=== PATIENT | female | born 1945 | race Caucasian/White ===

== ENCOUNTER → 2017-07-13 07:17 | Outpatient (CLI) | payer MEDICARE, OTHER, SELFPAY ==
[2017-07-13 13:27] LABS: Basophils # 0.2 K/mm3 (0-0.2); Basophils % 1.3 % (0.1-2.0); Eosinophils # 0.5 K/mm3 (0.0-0.4); Eosinophils % 3.2 % (0.1-12.0); Hematocrit 38.8 % (37.0-47.0); Hemoglobin 11.9 g/dL (12.2-16.2); Lymphocytes # 5.2 K/mm3 (0.7-4.5); Lymphocytes % 34.9 K/mm3 (10-50); Mean Corpuscular HGB Conc 30.6 g/dL (31.8-35.4); Mean Corpuscular Hemoglobin 25.8 pg (27.0-31.2); Mean Corpuscular Volume 84.2 fl (81-99); Mean Platelet Volume 9.8 fl (7.4-10.4); Monocytes # 0.6 K/mm3 (0.1-1.0); Neutrophils # 8.4 K/mm3 (1.8-7.8); Neutrophils % 56.5 % (37.0-80.0); Platelet Count 366 K/mm3 (142-424); Red Blood Count 4.61 M/mm3 (4.20-5.40); Red Cell Distribution Width 16.7 % (11.5-17.5); White Blood Count 14.8 K/mm3 (4.8-10.8)
[2017-07-13 13:55] LABS: Alanine Aminotransferase 23 U/L (12-78); Albumin Level 3.2 gm/dL (3.4-5.0); Anion Gap 15.2 mEq/L (5-15); Aspartate Amino Transferase 25 U/L (15-37); Bilirubin,Total 0.3 mg/dL (0.2-1.0); Blood Urea Nitrogen 11 mg/dL (7-18); Carbon Dioxide 26 mmol/L (21.0-32.0); Chloride 104 mmol/L (98-107); Creatinine,Serum 0.79 mg/dL (0.55-1.02); Estimated Glomerular Filt Rate 71 ml/min (>60); GFR (African American) 86 ML/MIN (>60); Glucose 170 mg/dL (74-106); Potassium 4.2 mmoL/L (3.5-5.1); Sodium 141 mmol/L (136-145); Total Protein,Serum 7.5 gm/dL (6.4-8.2)
[2017-07-13 13:56] LABS: Albumin/Globulin Ratio 0.7 (1.1-1.8); Alkaline Phosphatase 116 U/L (46-116); Chol/HDL Ratio 4.5 (1-3.5); Cholesterol 113 mg/dL (140-200); Globulin 4.3 gm/dl (1.3-3.2); HDL Cholesterol 25 mg/dL (29-89); LDL Cholesterol 37 mg/dL (0-130); Triglycerides 253 mg/dL (30-200); VLDL Cholesterol 51 mg/dL (0-40)
[2017-07-13 15:04] LABS: Hemoglobin A1C 7.1 % (0.0-7.0)
[2017-07-15 17:16] LABS: Vitamin B12 353 pg/mL (232-1245)
== END ==
PROVIDERS: PCP Internal Medicine Adolescent Medicine; Visit Provider Internal Medicine Adolescent Medicine
DX: E11.9 Type 2 diabetes mellitus without complications (principal); E78.5 Hyperlipidemia, unspecified; E53.8 Deficiency of other specified B group vitamins
CPT/HCPCS: 36415; 80053; 80061; 82607; 83036; 85025

== ENCOUNTER → 2017-10-06 09:24 | Outpatient (POV) | payer MEDICARE, SELFPAY | PROVIDERS: Visit Provider Dermatology | DX: Z00.00 Encounter for general adult medical examination without abnormal findings (principal) ==

== ENCOUNTER → 2017-11-03 09:36 | Outpatient (POV) | payer MEDICARE, SELFPAY | PROVIDERS: Visit Provider Dermatology | DX: Z00.00 Encounter for general adult medical examination without abnormal findings (principal) ==

== ENCOUNTER → 2017-11-21 11:17 | Outpatient (POV) | payer MEDICARE, OTHER, SELFPAY ==
[2017-11-21 11:31] VITALS: BP 162/60; PULSE 73; RESP 18; O2SAT 99; BMI 28.6
--- NOTE | 2017-11-21 11:45 | HMH.PAINSOAP ---
[facility] Pain Management SOAP Note Subjective:: It is an extremely pleasant 72-year-old white female who presents today for follow-up. Patient had a lumbar epidural steroid injection back in February. Patient had 90-100% relief until just recently. Patient is interested in repeating this injection. Patient's tried and failed physical therapy, medications, anti-inflammatories. Patient still is functional in trying to work. Patient states her pain is in her low back and radiating down into her left leg. ROS General: no recent weight change, no fever, no sleep disturbances Respiratory: no cough, no shortness of air, no recurring pulmonary infections Cardiovascular/Peripheral Vascular: No chest pain, No palpitations, no edema, no shortness of breath. Gastrointestinal: no incontinence, normal bowel movements reported Genitourinary: no incontinence Musculoskeletal: Back pain, left leg pain Psychiatric: normal mood/ affect Neurological: [denies weakness in extremities], [denies balance issues] Objective:: Physical Exam General: Alert and oriented x3, no acute distress, pleasant and cooperative, [on room air] Lungs: Resps E/U, Symmetrical chest expansion, Eyes: PERRL Musculoskeletal: Flexion and extension of lumbar spine somewhat guarded secondary to pain, deep tendon reflexes normal, strength in upper and lower extremities [5/5], slightly antalgic gait noted, positive straight leg raise test at 30? on the left side Neurological: speech clear, asset analyst equal, no gross sensory deficits Assessment:: Degenerative disc disease of lumbar spine with lumbar radiculopathy symptoms Plan:: We will schedule the patient for an L4-L5 lumbar epidural steroid injection. Patient's tried physical therapy, anti-inflammatories, medications. Patient has gotten 9800% relief for almost a year after her last injection. We will follow-up with this patient after her epidural steroid injection. This note was dictated using voice recognition software and may contain errors or omissions
--- NOTE | 2017-11-21 11:48 | P.CONS_ITS ---
[facility] Pain Management SOAP Note Subjective:: It is an extremely pleasant 72-year-old white female who presents today for follow-up. Patient had a lumbar epidural steroid injection back in February. Patient had 90-100% relief until just recently. Patient is interested in repeating this injection. Patient's tried and failed physical therapy, medications, anti-inflammatories. Patient still is functional in trying to work. Patient states her pain is in her low back and radiating down into her left leg. ROS General: no recent weight change, no fever, no sleep disturbances Respiratory: no cough, no shortness of air, no recurring pulmonary infections Cardiovascular/Peripheral Vascular: No chest pain, No palpitations, no edema, no shortness of breath. Gastrointestinal: no incontinence, normal bowel movements reported Genitourinary: no incontinence Musculoskeletal: Back pain, left leg pain Psychiatric: normal mood/ affect Neurological: [denies weakness in extremities], [denies balance issues] Objective:: Physical Exam General: Alert and oriented x3, no acute distress, pleasant and cooperative, [ on room air] Lungs: Resps E/U, Symmetrical chest expansion, Eyes: PERRL Musculoskeletal: Flexion and extension of lumbar spine somewhat guarded secondary to pain, deep tendon reflexes normal, strength in upper and lower extremities [5/5], slightly antalgic gait noted, positive straight leg raise test at 30? on the left side Neurological: speech clear, game advisor equal, no gross sensory deficits Assessment:: Degenerative disc disease of lumbar spine with lumbar radiculopathy symptoms Plan:: We will schedule the patient for an L4-L5 lumbar epidural steroid injection. Patient's tried physical therapy, anti-inflammatories, medications. Patient has gotten 9800% relief for almost a year after her last injection. We will follow-up with this patient after her epidural steroid injection. This note was dictated using voice recognition software and may contain errors or omissions
== END ==
PROVIDERS: Visit Provider Clinical Nurse Specialist Family Health
DX: M54.16 Radiculopathy, lumbar region (principal)
CPT/HCPCS: 99212

== ENCOUNTER → 2018-02-27 14:53 | Outpatient (POV) | payer MEDICARE, OTHER, SELFPAY ==
[2018-02-27 15:11] VITALS: BP 172/67; PULSE 72; RESP 18; O2SAT 96; BMI 27.8
--- NOTE | 2018-02-27 15:30 | P.CONS_ITS ---
[facility] Pain Management SOAP Note Subjective:: Patient is a pleasant 73-year-old white female who presents today for follow-up. Patient has done well with her lumbar epidural steroid injections and getting 90-100% relief for several months. Patient states her pain has begun to return. Patient is working longer hours. Patient's tried and failed physical therapy, anti-inflammatories, medications. Patient is still doing a home exercise routine. Patient is not on any anticoagulation therapy. ROS General: no recent weight change, no fever, no sleep disturbances Respiratory: no cough, no shortness of air, no recurring pulmonary infections Cardiovascular/Peripheral Vascular: No chest pain, No palpitations, no edema, no shortness of breath. Gastrointestinal: no incontinence, normal bowel movements reported Genitourinary: no incontinence Musculoskeletal: Back pain, leg pain Psychiatric: normal mood/ affect, Neurological: [denies weakness in extremities], [denies balance issues] Objective:: Physical Exam General: Alert and oriented x3, no acute distress, pleasant and cooperative, [on room air] Lungs: Resps E/U, Symmetrical chest expansion, Eyes: PERRL Musculoskeletal: Flexion and extension of lumbar spine somewhat guarded secondary to pain, deep tendon reflexes normal, strength in upper and lower extremities [5/5], slightly antalgic gait noted, positive straight leg raise test bilaterally at 30? Neurological: speech clear, filter press tender equal, no gross sensory deficits Assessment:: Degenerative disc disease along the lumbar spine with lumbar radiculopathy symptoms Plan:: We will schedule an L4-L5 lumbar epidural steroid injection for the patient. I will the patient 2 weeks after her injection and reassess her symptoms at that time. Patient has had good relief with these in the past. This note was dictated using voice recognition software and may contain errors or omissions
== END ==
PROVIDERS: PCP Internal Medicine Adolescent Medicine; Visit Provider Clinical Nurse Specialist Family Health
DX: M51.16 Intervertebral disc disorders with radiculopathy, lumbar region (principal)
CPT/HCPCS: 99213

== ENCOUNTER → 2018-10-02 15:24 | Outpatient (CLI) | payer MEDICARE, OTHER, SELFPAY ==
--- NOTE | 2018-10-02 15:30 | CT_ITS ---
CT mastoid W/O INDICATION: Suspect right-sided mastoiditis ITS.REASON: CELLULITIS OF RT. EXTERNAL EAR ORDERING PHYSICIAN: Shree Gallagher MD PATIENT AGE: 73 years COMPARISON: None TECHNIQUE: Axial images obtained with sagittal and coronal reformats. All CT scans at the facility use one or more dose reduction, viz: automated exposure control, ma/kV adjustment per patient size (including targeted exams where dose is matched to indication, i.e. head), or iterative reconstruction technique. FINDINGS: There is focal mucoperiosteal thickening of the posterior superior wall of the right maxillary sinus. The mastoids are clear bilaterally. Both internal auditory canals appear normal. There is very subtle and questionable increased attenuation of the soft tissues of the right ear when compared to the left possibly due to cellulitis. The ethmoid sinuses are clear, the frontal sinuses are hypoplastic but clear and sphenoid sinuses clear. The nasal septum is in the midline. There are mild arthritic changes of the temporomandibular joints bilaterally right worse than left. IMPRESSION: Normal mastoids bilaterally, mild chronic inflammatory change of the right maxillary sinus and mild arthritic changes of the temporomandibular joints.
== END ==
PROVIDERS: PCP Internal Medicine Adolescent Medicine; Visit Provider Internal Medicine Adolescent Medicine
DX: H60.11 Cellulitis of right external ear (principal)
CPT/HCPCS: 70486

== ENCOUNTER → 2018-10-03 10:35 | Outpatient (CLI) | payer MEDICARE, OTHER, SELFPAY ==
[2018-10-03 13:34] LABS: Basophils # 0.2 K/mm3 (0-0.2); Basophils % 0.8 % (0.1-2.0); Eosinophils # 0.3 K/mm3 (0.0-0.4); Eosinophils % 1.8 % (0.1-12.0); Hematocrit 37.4 % (37.0-47.0); Hemoglobin 11.2 g/dL (12.2-16.2); Lymphocytes # 4.7 K/mm3 (0.7-4.5); Lymphocytes % 27.1 % (10-50); Mean Corpuscular HGB Conc 29.9 g/dL (31.8-35.4); Mean Corpuscular Hemoglobin 24.6 pg (27.0-31.2); Mean Corpuscular Volume 82.3 fl (81-99); Mean Platelet Volume 9.9 fl (7.4-10.4); Monocytes # 0.5 K/mm3 (0.1-1.0); Monocytes % 3.1 % (1.7-9.3); Neutrophils # 11.7 K/mm3 (1.8-7.8); Neutrophils % 67.2 % (37.0-80.0); Red Blood Count 4.54 M/mm3 (4.20-5.40); Red Cell Distribution Width 17.2 % (11.5-17.5); White Blood Count 17.4 K/mm3 (4.8-10.8)
[2018-10-03 13:44] LABS: Alanine Aminotransferase 28 U/L (12-78); Albumin Level 3.3 gm/dL (3.4-5.0); Albumin/Globulin Ratio 0.7 (1.1-1.8); Alkaline Phosphatase 108 U/L (46-116); Anion Gap 17.2 mEq/L (5-15); Aspartate Amino Transferase 33 U/L (15-37); Bilirubin,Total 0.3 mg/dL (0.2-1.0); Blood Urea Nitrogen 11 mg/dL (7-18); Calcium 9.5 mg/dL (8.5-10.1); Carbon Dioxide 26 mmol/L (21.0-32.0); Chloride 103 mmol/L (98-107); Creatinine,Serum 0.99 mg/dL (0.55-1.02); Estimated Glomerular Filt Rate 55 ml/min (>60); GFR (African American) 66 ML/MIN (>60); Globulin 4.8 gm/dl (1.3-3.2); Glucose 148 mg/dL (74-106); Potassium 4.2 mmoL/L (3.5-5.1); Sodium 142 mmol/L (136-145); Total Protein,Serum 8.1 gm/dL (6.4-8.2)
[2018-10-03 14:15] LABS: Platelet Count 468 K/mm3 (142-424)
[2018-10-03 14:16] LABS: MANUAL DIFFERENTIAL MANUAL DIFFERENTIAL (MANUAL DIFF)
[2018-10-03 15:45] LABS: Eosinophils % 2 % (0-3); Hypochromasia 1+; Lymphocytes % 27 % (10-50); Monocytes % 3 % (2-9); Neutrophils % 65 % (42-76); Platelet Estimate Normal; Total Cells Counted 100
[2018-10-05 10:38] LABS: Peripheral Smear Review Scanned Result
== END ==
PROVIDERS: PCP Internal Medicine Adolescent Medicine; Visit Provider Internal Medicine Adolescent Medicine
DX: R04.2 Hemoptysis (principal); D72.829 Elevated white blood cell count, unspecified
CPT/HCPCS: 36415; 80053; 85007; 85025; 85060

== ENCOUNTER → 2018-10-06 09:58 | Outpatient (CLI) | payer MEDICARE, OTHER, SELFPAY ==
--- NOTE | 2018-10-06 10:19 | CT_ITS ---
CT chest w con HISTORY: ITS.REASON: HEMOPTYSIS hemoptysis. ORDERING PHYSICIAN: Shree Gallagher MD PATIENT AGE: 73 years COMPARISON: 2 view chest 09/18/[address] studies chest Technique: Axial images obtained. Sagittal and coronal reformatted images are also generated and reviewed. All CT scans at the facility use one or more dose reduction, viz: automated exposure control, ma/kV adjustment per patient size (including targeted exams where dose is matched to indication, i.e. head), or iterative reconstruction technique. FINDINGS: MEDIASTINAL AND HILAR STRUCTURES: No mediastinal adenopathy. Only small moderate nodes. Largest measuring 14 x 10 mm at the superior precarinal region. Axial slice 28. Only a few tiny nodes at the AP window. RIGHT GUERRERO Minimal Additional soft tissue density right guerrero suggesting a 14 mm node here, mid right guerrero] point between the pulmonary arteries. Upper normal soft tissue density at the right guerrero inferiorly also noted. This will require follow-up. Suggest a follow-up CT chest in 3 months with contrast with given history. Bronchoscopy might be considered... I see no endobronchial lesion associated with airways on these images. Central Appear smooth. Upper normal airway thickness. Left Guerrero. Upper normal interstitial density at left guerrero. No adenopathy. HEART: . Heart upper normal in size Coronary artery calcifications are fairly extensive mainly involving the LAD, circumflex also at the left main and right coronary artery. Previous median sternotomy and CABG. No pericardial effusion. The aorta and pulmonary arteries are unremarkable. Moderate enhancement of pulmonary arteries with no pulmonary emboli evident LUNG HANKINS. Fairly pronounced chronic changes bilaterally Emphysematous changes, with interstitial fibrotic changes as well as scattered patchy areas of fibrotic changes at the periphery the lung hankins. Some with associated small cyst/ bleb formation Scattered small blebs at the periphery of the left upper lung most notable. There is some fibrosis and and processing tiny blebs seen at several areas at the right posterior sulcus. Some of the these fibrotic features & changes at the medial right chest associated with marginal osteophytes indenting the lung. Very subtle groundglass opacity towards ligula reflecting chronic lung changes as well. I see no suspicious lung masses or significant suspicious nodules. Small focal density at the medial aspect of the right posterior sulcus on on axial slice 63 measures up to 14 mm but appears be related to scarring.. Similar focal area of density which favor is due to scarring at the left CP angle/lung base just above the diaphragm. Otherwise at left lower lobe there is a calcified granuloma, left lung base 6 mm size (axial 53) some minimal scarring about this area. . Small flat area of density posterior RLL axial slice 45 is merely due to scarring . Upper Abdomen. Unremarkable. Bone:. T-spine vertebral bodies intact marginal osteophytes. Sternotomy. No rib lesions.: IMPRESSION: 1. Mild prominence right guerrero noted- suggest 14 mm node at Central right guerrero with upper normal interstitial density inferior to this.. Airway appears smooth in this region with no endobronchial lesion evident. Upper normal wall thickness airways centrally 2.. Moderately pronounced Chronic lung changes bilaterally,. Emphysematous changes. Numerous performed Patchy areas of fibrotic of change and minor bleb formation . Interstitial coarsening with also Slight groundglass opacity lingula.-Reflecting chronic features No focal parenchymal lung nodule or mass of significant concern. Scattered benign-appearing densities most likely due to scarring 3. Recommend bilateral f
--- NOTE | 2018-10-06 12:46 | HMH.ITSHM ---
Current Home Medications as stated by this patient Judie Pisano or labor representative. []VIT D,NIACAIN,ALPRAZOLAM,ASPIRIN,VITR C CARVEDILOLMESCITALOPRAM,INVOKANA LEVOTHRYROXINE,OMEPRAZOLE,RANITIDINE FUROSEMIED ATORVASTATIN CRISTIANOUMET
== END ==
PROVIDERS: PCP Internal Medicine Adolescent Medicine; Visit Provider Internal Medicine Adolescent Medicine
DX: R04.2 Hemoptysis (principal)
CPT/HCPCS: 71260; Q9967

== ENCOUNTER → 2018-10-16 10:59 | Outpatient (CLI) | payer MEDICARE, OTHER, SELFPAY ==
[2018-10-16 12:50] VITALS: PULSE 77; PULSE 78
== END ==
PROVIDERS: PCP Internal Medicine Adolescent Medicine; Visit Provider Internal Medicine Adolescent Medicine
DX: R05 Cough (principal)
CPT/HCPCS: 94060; 94640; 94726; 94729

== ENCOUNTER → 2018-12-25 09:44 | Outpatient (CLI) | payer MEDICARE, OTHER, SELFPAY ==
--- NOTE | 2018-12-25 09:51 | XR_ITS ---
XR foot wt bearing LT 3V HISTORY: ITS.REASON: pain ORDERING PHYSICIAN: Manjula Cardona DPM PATIENT AGE: 73 years COMPARISON: None FINDINGS: No fracture or dislocation. No lytic or blastic change. There is normal mineralization.. The joint spaces are well-preserved. No significant degenerative/arthritic changes. No erosive changes evident. There are small ossification posterior to the calcaneus likely related to the Achilles tendon. IMPRESSION: No acute process. Achilles tendon ossification likely from chronic tendinosis.
--- NOTE | 2018-12-25 09:51 | XR_ITS ---
XR foot wt bearing RT 3V HISTORY: ITS.REASON: pain ORDERING PHYSICIAN: Manjula Cardona DPM PATIENT AGE: 73 years COMPARISON: None FINDINGS: No fracture or dislocation. No lytic or blastic change. There is normal mineralization.. The joint spaces are well-preserved. No significant degenerative/arthritic changes. No erosive changes evident. There is small spur posterior calcaneus at the Achilles tendon attachment. IMPRESSION: No acute process. Degenerative calcaneal change.
== END ==
PROVIDERS: PCP Internal Medicine Adolescent Medicine; Visit Provider Podiatrist
DX: M79.672 Pain in left foot (principal); M79.671 Pain in right foot
CPT/HCPCS: 73630

== ENCOUNTER → 2019-01-02 07:23 | Outpatient (CLI) | payer MEDICARE, OTHER, SELFPAY ==
[2019-01-02 14:39] LABS: Basophils # 0.1 K/mm3 (0-0.2); Basophils % 0.8 % (0.1-2.0); Eosinophils % 5.3 % (0.1-12.0); Hematocrit 34.1 % (37.0-47.0); Hemoglobin 9.7 g/dL (12.2-16.2); Lymphocytes # 4.4 K/mm3 (0.7-4.5); Lymphocytes % 23.9 % (10-50); Mean Corpuscular HGB Conc 28.5 g/dL (31.8-35.4); Mean Corpuscular Hemoglobin 22.7 pg (27.0-31.2); Mean Corpuscular Volume 79.7 fl (81-99); Mean Platelet Volume 9.9 fl (7.4-10.4); Monocytes # 0.8 K/mm3 (0.1-1.0); Monocytes % 4.3 % (1.7-9.3); Neutrophils # 12.2 K/mm3 (1.8-7.8); Neutrophils % 65.8 % (37.0-80.0); Red Blood Count 4.28 M/mm3 (4.20-5.40); Red Cell Distribution Width 18.2 % (11.5-17.5); White Blood Count 18.5 K/mm3 (4.8-10.8)
[2019-01-02 15:37] LABS: MANUAL DIFFERENTIAL MANUAL DIFFERENTIAL (MANUAL DIFF); Platelet Count 598 K/mm3 (142-424)
[2019-01-02 15:40] LABS: Alanine Aminotransferase 35 U/L (12-78); Albumin Level 2.8 gm/dL (3.4-5.0); Albumin/Globulin Ratio 0.6 (1.1-1.8); Alkaline Phosphatase 103 U/L (46-116); Anion Gap 14.9 mEq/L (5-15); Aspartate Amino Transferase 42 U/L (15-37); Bilirubin,Total 0.3 mg/dL (0.2-1.0); Blood Urea Nitrogen 13 mg/dL (7-18); Calcium 8.9 mg/dL (8.5-10.1); Carbon Dioxide 25 mmol/L (21.0-32.0); Chloride 104 mmol/L (98-107); Creatinine,Serum 0.74 mg/dL (0.55-1.02); Estimated Glomerular Filt Rate 77 ml/min (>60); Ferritin 80 ng/mL (8-388); GFR (African American) 93 ML/MIN (>60); Globulin 4.7 gm/dl (1.3-3.2); Glucose 194 mg/dL (74-106); Potassium 4.9 mmoL/L (3.5-5.1); Sodium 139 mmol/L (136-145); Total Protein,Serum 7.5 gm/dL (6.4-8.2)
[2019-01-02 16:28] LABS: Anisocytosis 2+; Eosinophils % 3 % (0-3); Hypochromasia 3+; Lymphocytes % 29 % (10-50); Microcytosis 2+; Monocytes % 4 % (2-9); Neutrophils % 64 % (42-76); Platelet Estimate Clumped; Total Cells Counted 100
[2019-01-04 06:17] LABS: Iron 22 ug/dL (27-139); UIBC 379 ug/dL (118-369)
[2019-01-04 06:24] LABS: Iron Saturation 5 % (15-55)
[2019-01-04 15:07] LABS: Free Kappa Lt Chains 56.7 mg/L (3.3-19.4); Free Lambda Lt Chains 41.9 mg/L (5.7-26.3)
[2019-01-05 07:11] LABS: Vitamin B12 509 pg/mL (232-1245)
[2019-01-05 14:08] LABS: Immunoglobulin A, Qn 340 mg/dL (64-422); Immunoglobulin G, Qn 1676 mg/dL (700-1600)
[2019-01-05 15:08] LABS: Albumin 3.1 g/dL (2.9-4.4); Alpha-1-Globulin 0.2 g/dL (0.0-0.4); Alpha-2-Globulin 1.3 g/dL (0.4-1.0); Gamma Globulin 1.8 g/dL (0.4-1.8); Protein, Total 7.6 g/dL (6.0-8.5)
[2019-01-05 17:16] LABS: Immunoglobulin M, Qn 65 mg/dL (26-217)
== END ==
PROVIDERS: PCP Internal Medicine Adolescent Medicine; Visit Provider Internal Medicine Medical Oncology
DX: D72.829 Elevated white blood cell count, unspecified (principal); D50.9 Iron deficiency anemia, unspecified; J18.9 Pneumonia, unspecified organism
CPT/HCPCS: 36415; 80053; 81206; 82607; 82728; 82784; 83540; 83550; 83883; 84155; 84165; 85007; 85025; 86334

== ENCOUNTER → 2019-01-11 08:48 | Outpatient (CLI) | payer MEDICARE, OTHER, SELFPAY ==
--- NOTE | 2019-01-11 08:59 | CT_ITS ---
CT chest w con HISTORY: ITS.REASON: PNEUMONIA,IRON DEF,ANEMIA,LEUKOCYTOSIS ORDERING PHYSICIAN: Jeannine Young MD PATIENT AGE: 73 years COMPARISON: 10/06/2018 Technique: Contrast Used:75ml Optiray 350 Axial images were obtained. Sagittal, and coronal reformatted images are also generated and reviewed. All CT scans at the facility use one or more dose reduction, viz: automated exposure control, ma/kV adjustment per patient size (including targeted exams where dose is matched to indication, i.e. head), or iterative reconstruction technique. FINDINGS: There is mild mediastinal adenopathy once again noted which does not appear significantly changed. Small nodes are also present in the willem which are unchanged. Coronary artery calcifications are present. There is normal heart size. No evidence of aortic aneurysm or dissection. There are scattered pulmonary fibrotic changes with interstitial lung disease noted along with centrilobular emphysema. These findings are not significantly changed. No lobar consolidation or collapse. Scattered areas of groundglass density are noted as before in keeping with interstitial pneumonitis. There is a calcified granuloma in the left lower lobe. No central obstructing lesions. Upper abdominal images show prior splenectomy. There is high-grade stenosis involving the ostium of the celiac artery of at least 90% and moderate to high-grade stenosis of the ostium of the superior mesenteric artery of 60%. IMPRESSION: 1. Overall no significant change in the mild mediastinal and hilar adenopathy with diffuse interstitial pneumonitis/chronic interstitial lung disease with scattered areas of pulmonary fibrosis. 2. 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 CT angiography of the mesenteric vessels may be of further value if clinically desired 3. Coronary artery calcification
== END ==
PROVIDERS: PCP Internal Medicine Adolescent Medicine; Visit Provider Internal Medicine Medical Oncology
DX: J18.9 Pneumonia, unspecified organism (principal); D50.9 Iron deficiency anemia, unspecified; D72.829 Elevated white blood cell count, unspecified
CPT/HCPCS: 71260; Q9967

== ENCOUNTER → 2019-01-15 13:33 | Outpatient (CLI) | payer MEDICARE, OTHER, SELFPAY ==
[2019-01-15 13:59] LABS: Blood Urea Nitrogen 13 mg/dL (7-18); Estimated Glomerular Filt Rate 70 ml/min (>60); GFR (African American) 85 ML/MIN (>60)
--- NOTE | 2019-01-15 14:20 | CT_ITS ---
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 All CT scans at the facility use one or more dose reduction, viz: automated exposure control, ma/kV adjustment per patient size (including targeted exams where dose is matched to indication, i.e. head), or iterative reconstruction technique. FINDINGS: There is 75 % short segment stenosis involving the ostium of the celiac artery. There is poststenotic dilatation. There is 70 % smooth stenosis involving the proximal aspect of the superior mesenteric artery. This stenosis is approximately 10 mm in length. There is poststenotic dilatation of the superior mesenteric artery distal to this stenosis. There is mild amount of plaque at the ostium of the renal arteries but no significant renal artery stenosis identified. There are 2 right renal arteries. No aortic aneurysm or dissection. Nonage in graphic findings: Prior splenectomy 2 cm right renal cyst Degenerative changes of the spine. IMPRESSION: 1. 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 There is 75% stenosis of the ostium of the celiac and 70% long smooth segment stenosis of the ostium of the SMA.
== END ==
PROVIDERS: Visit Provider Internal Medicine Adolescent Medicine
DX: I77.4 Celiac artery compression syndrome (principal)
CPT/HCPCS: 36415; 74175; 82565; 84520; Q9967

== ENCOUNTER → 2019-02-01 10:17 | Outpatient (CLI) | payer MEDICARE, OTHER, SELFPAY ==
--- NOTE | 2019-02-01 10:23 | MM_ITS ---
MM Dig screening mamm BI w/CAD CAD Screening COMPARISON: Digital mammograms with CAD 08/25/2011 and 11/13/2015 INDICATION: There is no personal or family history of breast cancer TECHNIQUE: Standard CC and MLO images were obtained. R2 CAD reviewed. FINDINGS: Scattered fibroglandular densities are seen in both breast. There is a new asymmetric density with somewhat suspicious irregular borders upper outer quadrant right breast near the axillary tail. Recommend the patient return for spot compression views of this lesion and ultrasound as well. There are few benign-appearing calcifications in each breast. There are no suspicious microcalcifications. IMPRESSION: Fibrofatty parenchyma with somewhat suspicious asymmetric density right breast BI-RADS Category: 0 Need Additional Imaging Evaluation RECOMMENDED FOLLOW-UP: IMM - IMMEDIATE FOLLOW-UP RECOMMENDED (A letter has been sent to the patient regarding results of the study.)
== END ==
PROVIDERS: PCP Internal Medicine Adolescent Medicine; Visit Provider Internal Medicine Medical Oncology
DX: Z12.31 Encounter for screening mammogram for malignant neoplasm of breast (principal)
CPT/HCPCS: 77067

== ENCOUNTER → 2019-02-06 06:56 | Outpatient (CLI) | payer MEDICARE, OTHER, SELFPAY ==
--- NOTE | 2019-02-06 06:57 | CI_ITS ---
Cerebrovascular Exam Indications: 780.4 Dizziness and giddiness. IMPRESSIONS 1. The bilateral vertebral arteries are patent with normal antegrade flow. 2. Study suggests 20-49% stenosis involving the right internal carotid artery. 3. Study suggests 50-69%(Lower end of scale)stenosis involving the left internal carotid artery. History: Risk factors: Hypertension. Diabetes mellitus. Hyperlipidemia. Carotid duplex study. Complete study and Doppler flow study including spectral analysis, color and sparrow scale imaging. Height: Height: 165.1cm. Height: 65in. Weight: Weight: 76.7kg. Weight: 168.6lb. Body mass index: BMI: 28.1kg/m^2. Body surface area: BSA: 1.9m^2. Location: Vascular laboratory. Patient status: Outpatient. Tables: Arterial flow: + +--------+--------+ Location V sys V ed + +--------+--------+ Right CCA - proximal 95cm/s 17.5cm/s + +--------+--------+ Right CCA - distal 75.4cm/s 14cm/s + +--------+--------+ Right ECA 88.6cm/s -------- + +--------+--------+ Right ICA - proximal 101cm/s 26.5cm/s + +--------+--------+ Right ICA - mid 124cm/s 31.4cm/s + +--------+--------+ Right ICA - distal 96.8cm/s 24.5cm/s + +--------+--------+ Right vertebral 47.8cm/s -------- + +--------+--------+ Left CCA - proximal 91.1cm/s 17.6cm/s + +--------+--------+ Left CCA - distal 75.5cm/s 15.4cm/s + +--------+--------+ Left ECA 101cm/s -------- + +--------+--------+ Left ICA - proximal 141cm/s 32.3cm/s + +--------+--------+ Left ICA - mid 124cm/s 36.7cm/s + +--------+--------+ Left ICA - distal 84.5cm/s 23cm/s + +--------+--------+ Left vertebral 72.6cm/s -------- + +--------+--------+ Velocity ratios: + + + + + + Right, V sys Right, V ed Left, V sys Left, V ed + + + + + + Max ICA/dist CCA 1.64 2.24 1.87 2.38 + + + + + + (Report amended ) Electronically signed by: Nirmal Guerrero [id number]
--- NOTE | 2019-02-06 06:57 | CA_ITS ---
PROCEDURE: 2-D M-mode and color Doppler study INDICATIONS FOR THE TEST: Chest pain COPD Heart Murmur Tobacco Smoking Palpitations+ Fatigue+ Syncope Edema+ Hypertension+Diabetes Mellitus+ Rheumatic Fever SOB POLANCO Obesity Hyperlipidemia+ Family History HD+ Additional History CABG PATIENT INFORMATION HEIGHT: 65 WEIGHT: 174 GENDER: Female B/P: 140/60 2-D/M-MODE INTERPRETATION: 2-D MEASUREMENTS OBSERVED VALUES IN CMS Right Ventricular Dimension (RVDd) 2.4 Interventricular Septum (Thickness)(IVsd) 0.8 Left Ventricular Internal Dimensions(LVIDd) 5.6 Left Ventricular Posterior Wall (Thickness)(LVPWd) 0.9 Aortic Root 2.7 Aortic Cusp Separation 2.0 Left Atrial Dimensions (LAD) 4.2 2D 1. Left atrium is mildly enlarged, left ventricle is normal size, there is mild concentric left ventricular hypertrophy, visually estimated ejection fraction 50% with no obvious regional wall motion abnormality, endocardial surfaces are poorly visualized. 2. The right atrium and right ventricle are mildly enlarged with normal contractility. 3. The aortic valve is thickened and calcified difficult to display mobility. 4. The mitral and tricuspid valve leaflets are minimally thickened. 5. The pulmonic valve is poorly visualized. 6. No significant pericardial effusion noted. DOPPLER INTERROGATION: Doppler interrogation of the aortic, mitral and tricuspid valvular presence of mild mitral, moderate aortic and tricuspid regurgitation, calculated right ventricular systolic pressure is 43 mmHg consistent with moderate pulmonary hypertension, grade 1 diastolic dysfunction seen with Doppler evidence of raised left atrial pressure. Inferior vena cava is not well visualized. CONCLUSION: 1. Mildly enlarged left atrium, normal left ventricular size, mild concentric left ventricular hypertrophy, visually estimated ejection fraction 50% with no obvious regional wall motion abnormality, grade 1 diastolic dysfunction seen with tissue Doppler evidence of raised left atrial pressure. 2. Mild mitral, moderate aortic and moderate tricuspid regurgitation, calculated right ventricular systolic pressure is 43 mmHg, consistent with moderate pulmonary hypertension. Inferior vena cava is not well visualized. 3. No significant pericardial effusion noted.
--- NOTE | 2019-02-06 06:57 | NM_ITS ---
SPECT MYOCARDIAL PERFUSION SCAN, REST AND STRESS: EXERCISE STRESS: [facility] REVIEW QGS EF AND WALL MOTION EVALUATION: QPS - PERFUSION EVALUATION: HISTORY: CAD, Hx of AK, CABG, HTN, DM, Family history PROCEDURE: Rest imaging performed after administration of10.41 millicuries Tc MIBI. Dose administered at7:10 a.m., with imaging thereafter. Stress imaging was then performed following6 minutes 30 seconds of exercise stress. The patient achieved a heart [id number] with projected heart rate of123 . Resting BP171/74 with stress 160/70. At maximum exercise stress,29.9 millicuries Tc MIBI administered at8:55 a.m. with [id number] minutes thereafter. FINDINGS: Perfusion Evaluation: The single slice spect images as well as the [facility] bull's-eye data summary were reviewed. Wall Motion and Ejection Fraction Evaluation: Gated SPECT review and analysis used to evaluate these features. There is a 58 % left ventricular ejection fraction. There seems to be good wall motion Stress images reveal large defect in the anterior and lateral wall which normalizes with rest IMPRESSION: High risk abnormal stress test with large degree of anterior lateral ischemia accompanied by normal ejection fraction with mild hypokinesis of the anterior apex.
--- NOTE | 2019-02-06 07:16 | HMH.ITSHM ---
Current Home Medications as stated by this patient Judie Pisano or field representative/health education. []SITAGLIPTIN RANITIDINE NIACIN LEVOTHYROXINE FUROSEMIDE FLUTICASONE ESCITALOPRAM DICLOFENAC VIT D3 CARVEDILOL BUDESONIDE ATORVASTATIN ASA VITAMIN C ALPRAZOLAM
== END ==
PROVIDERS: PCP Internal Medicine Adolescent Medicine; Visit Provider Internal Medicine
DX: I25.2 Old myocardial infarction (principal); I65.29 Occlusion and stenosis of unspecified carotid artery; R42 Dizziness and giddiness
CPT/HCPCS: 78452; 93017; 93306; 93880; A9502

== ENCOUNTER → 2019-02-26 08:34 | Outpatient (CLI) | payer MEDICARE, OTHER, SELFPAY ==
[2019-02-26 08:58] LABS: Basophils # 0.1 K/mm3 (0-0.2); Basophils % 0.7 % (0.1-2.0); Eosinophils # 0.4 K/mm3 (0.0-0.4); Eosinophils % 2.3 % (0.1-12.0); Hematocrit 37.8 % (37.0-47.0); Hemoglobin 11.3 g/dL (12.2-16.2); Lymphocytes # 3.9 K/mm3 (0.7-4.5); Lymphocytes % 21.3 % (10-50); Mean Corpuscular Hemoglobin 24.8 pg (27.0-31.2); Mean Corpuscular Volume 82.7 fl (81-99); Mean Platelet Volume 9.4 fl (7.4-10.4); Monocytes # 0.9 K/mm3 (0.1-1.0); Monocytes % 5.1 % (1.7-9.3); Neutrophils # 12.9 K/mm3 (1.8-7.8); Neutrophils % 70.5 % (37.0-80.0); Platelet Count 365 K/mm3 (142-424); Red Blood Count 4.57 M/mm3 (4.20-5.40); Red Cell Distribution Width 20.3 % (11.5-17.5); White Blood Count 18.3 K/mm3 (4.8-10.8)
[2019-02-26 09:04] LABS: MANUAL DIFFERENTIAL MANUAL DIFFERENTIAL (MANUAL DIFF)
[2019-02-26 09:14] LABS: Anion Gap 15.4 mEq/L (5-15); Blood Urea Nitrogen 25 mg/dL (7-18); Calcium 9.6 mg/dL (8.5-10.1); Carbon Dioxide 25 mmol/L (21.0-32.0); Chloride 103 mmol/L (98-107); Creatinine,Serum 1.12 mg/dL (0.55-1.02); Estimated Glomerular Filt Rate 47 ml/min (>60); GFR (African American) 57 ML/MIN (>60); Glucose 219 mg/dL (74-106); Potassium 4.4 mmoL/L (3.5-5.1); Sodium 139 mmol/L (136-145)
[2019-02-26 09:24] LABS: Acanthocytes 1+; Eosinophils % 2 % (0-3); Lymphocytes % 14 % (10-50); Monocytes % 7 % (2-9); Neutrophils % 73 % (42-76); Platelet Estimate Normal; Schistocytes 1+; Total Cells Counted 100
[2019-02-26 09:25] LABS: Hypochromasia 2+; Macrocytosis 1+; Microcytosis 1+
== END ==
PROVIDERS: Visit Provider Internal Medicine
DX: Z95.5 Presence of coronary angioplasty implant and graft (principal); I25.10 Atherosclerotic heart disease of native coronary artery without angina pectoris
CPT/HCPCS: 36415; 80048; 85007; 85025

== ENCOUNTER → 2019-02-27 13:16 | Outpatient (CLI) | payer MEDICARE, OTHER, SELFPAY ==
--- NOTE | 2019-02-27 13:26 | MM_ITS ---
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 This partially compresses out and is similar density to the other areas of surrounding breast tissue. This may only be related to asymmetric fibroglandular tissue the. Right breast ultrasound: There is a 5 mm cyst at 5 o'clock. At 8 o'clock there is a 6 mm cyst. At 10 o'clock there is a 3 mm cyst. No suspicious lesions are evident. IMPRESSION: Persistent small area of asymmetric density in the upper outer right breast without definite sonographic correlate may be related to fibroglandular tissue. This is only well seen on the MLO view. Probably benign. Recommend six-month follow-up BI-RAD Category: 3 Probably Benign Finding Short Term Follow-up FOLLOW-UP: 6M 6Month Follow-up (A letter has been sent to the patient regarding results of the study.) Dictated by: Nirmal Guerrero MD 03/02/2019 11:24 Signed by: <Electronically signed by Nirmal Guerrero MD in [place]> 03/02/2019 11:24
== END ==
PROVIDERS: PCP Internal Medicine Adolescent Medicine; Visit Provider Internal Medicine Adolescent Medicine
DX: R92.8 Other abnormal and inconclusive findings on diagnostic imaging of breast (principal)
CPT/HCPCS: 76641; 77065

== ENCOUNTER → 2019-06-17 14:10 | Outpatient (CLI) | payer MEDICARE, OTHER, SELFPAY ==
--- NOTE | 2019-06-17 | XR_ITS ---
PROCEDURE: XR SHOULDER RT MIN 2V Patient Age:74Y CLINICAL INDICATION: RIGHT ANTERIOR SHOULDER PAIN The the COMPARISON: CXR CHEST(2 VIEWS-NOT PORTABLE) from 09/18/2015 SHOU3L [id number] VIEWS from 06/06/[address] chest w con from 01/11/2019 FINDINGS: Right humeral head and neck intact. No fracture. No acute finding. Glenoid intact. Glenohumeral joint intact and unremarkable. AC joint normal width. Minimal hazy dystrophic calcification at the superior margin AC joint-may reflect some vague degenerative type calcification, or less likely chondrocalcinosis. I believe a similar appearance was seen on previous January 2019 CT chest. However if there is pain here than this may benefit from follow-up with there is a very subtle linear density among this hazy density noted today but doubt acute finding or fracture. Nonetheless if pain in persist here follow-up suggested. There is no separation or dislocation at AC joint. The upper right ribs are intact. The scapula is intact. The glenohumeral joint intact. Humeral head and neck appears satisfactory with some insertional irregularities at the greater tuberosity.. A slight narrowing at the subacromial lesion reflect rotator cuff demise IMPRESSION: No acute fracture nor dislocation right shoulder.. Slight narrowing appearance the subacromial space of noted and can reflect rotator cuff demise or the tear . Subtle hazy calcification along superior aspect otherwise normal right AC joint. Of most likely degenerative/calcification joint capsule or chondrocalcinosis. This is evident previously but slightly apparent today . If pain persists/progresses consider orthopedic consult and/or further imaging evaluation Dictated by: Rajeev Love MD 06/17/2019 15:15 Electronically signed by Rajeev Love MD in [place] 06/17/2019 15:15
== END ==
PROVIDERS: PCP Internal Medicine Adolescent Medicine; Visit Provider Nurse Practitioner Family
DX: M25.511 Pain in right shoulder (principal)
CPT/HCPCS: 73030

== ENCOUNTER → 2019-06-19 12:54 | Outpatient (CLI) | payer MEDICARE, OTHER, SELFPAY ==
[2019-06-19 13:17] LABS: Basophils # 0.1 K/mm3 (0-0.2); Basophils % 0.8 % (0.1-2.0); Eosinophils # 0.6 K/mm3 (0.0-0.4); Eosinophils % 3.5 % (0.1-12.0); Hematocrit 36.1 % (37.0-47.0); Hemoglobin 11.3 g/dL (12.2-16.2); Lymphocytes # 4.5 K/mm3 (0.7-4.5); Lymphocytes % 28.9 % (10-50); Mean Corpuscular HGB Conc 31.4 g/dL (31.8-35.4); Mean Corpuscular Hemoglobin 28.8 pg (27.0-31.2); Mean Corpuscular Volume 91.9 fl (81-99); Mean Platelet Volume 9.1 fl (7.4-10.4); Monocytes # 0.6 K/mm3 (0.1-1.0); Monocytes % 4.1 % (1.7-9.3); Neutrophils # 9.8 K/mm3 (1.8-7.8); Neutrophils % 62.8 % (37.0-80.0); Platelet Count 432 K/mm3 (142-424); Red Blood Count 3.93 M/mm3 (4.20-5.40); Red Cell Distribution Width 15.9 % (11.5-17.5); White Blood Count 15.6 K/mm3 (4.8-10.8)
[2019-06-19 13:38] LABS: MANUAL DIFFERENTIAL MANUAL DIFFERENTIAL (MANUAL DIFF)
[2019-06-19 14:41] LABS: Eosinophils % 3 % (0-3); Lymphocytes % 32 % (10-50); Monocytes % 3 % (2-9); Neutrophils % 61 % (42-76); Platelet Estimate Normal; RBC Morphology Normal; Total Cells Counted 100
--- NOTE | 2019-06-19 14:51 | MR_ITS ---
PROCEDURE: MR HEAD/BRAIN WO CON CLINICAL INDICATION: ATAXIA, FALL Frequent falls COMPARISON: BRW/O MRI-BRAIN W/O from 02/03/2016 TECHNIQUE: Routine multiplanar multi echo sequences are performed without gadolinium enhancement. FINDINGS: No midline shift, mass effect, intracranial hemorrhage, or hydrocephalus. No evidence of acute infarction. There are periventricular and subcortical T2 white matter hyperintensities consistent with ischemic gliotic change from microvascular disease. The cerebellopontine angles, cerebellum, and brainstem are unremarkable. The pituitary, optic chiasm, corpus callosum, and craniocervical junction have an unremarkable appearance. Small amount fluid is present in the left mastoid sinus. There is 4 mm anterolisthesis of C3 on C4 with degenerative disc disease and bulging disc at that area with canal stenosis. This is only imaged on the edge of the sagittal images. Consider MRI of the cervical spine more thorough evaluation. There is canal stenosis of approximately 8 mm. IMPRESSION: 1. No acute intracranial findings. There are involutional changes of age with nonspecific periventricular and subcortical T2 white matter hyperintensities which may be due to skin shyla gliotic change microvascular disease overall not significantly changed. 2. Left mastoid effusion. 3. Degenerative disc disease with 4 mm anterolisthesis of C3 on C4 with bulging disc and canal stenosis. MRI of the cervical spine may provide further detail Dictated by: Nirmal Guerrero MD 06/20/2019 09:59 Electronically signed by Nirmal Guerrero MD in [place] 06/20/2019 09:59
[2019-06-19 16:19] LABS: Alanine Aminotransferase 25 U/L (12-78); Albumin Level 3.1 gm/dL (3.4-5.0); Albumin/Globulin Ratio 0.7 (1.1-1.8); Alkaline Phosphatase 83 U/L (46-116); Anion Gap 16.2 mEq/L (5-15); Aspartate Amino Transferase 30 U/L (15-37); Bilirubin,Total 0.3 mg/dL (0.2-1.0); Blood Urea Nitrogen 13 mg/dL (7-18); Calcium 8.7 mg/dL (8.5-10.1); Carbon Dioxide 25 mmol/L (21.0-32.0); Chloride 106 mmol/L (98-107); Creatinine,Serum 0.75 mg/dL (0.55-1.02); Estimated Glomerular Filt Rate 75 ml/min (>60); GFR (African American) 91 ML/MIN (>60); Globulin 4.4 gm/dl (1.3-3.2); Glucose 116 mg/dL (74-106); Potassium 4.2 mmoL/L (3.5-5.1); Sodium 143 mmol/L (136-145); Thyroid Stimulating Hormone 3.25 uIU/ml (0.358-3.740); Total Protein,Serum 7.5 gm/dL (6.4-8.2)
== END ==
PROVIDERS: PCP Internal Medicine Adolescent Medicine; Visit Provider Internal Medicine Adolescent Medicine
DX: I50.9 Heart failure, unspecified (principal); R27.0 Ataxia, unspecified
CPT/HCPCS: 36415; 70551; 80053; 84443; 85007; 85025

== ENCOUNTER 2019-07-24 10:22 | Outpatient (CLI) | payer MEDICARE, OTHER, SELFPAY ==
[2019-07-24] VITALS (10 sets, daily range): BP systolic 123–144; BP diastolic 54–69; PULSE 66–90; RESP 18; O2SAT 95; BMI 28.1
[2019-07-24 10:55] LABS: Basophils # 0.1 K/mm3 (0-0.2); Basophils % 0.5 % (0.1-2.0); Eosinophils # 0.7 K/mm3 (0.0-0.4); Eosinophils % 3.6 % (0.1-12.0); Hematocrit 43.5 % (37.0-47.0); Hemoglobin 13.5 g/dL (12.2-16.2); Lymphocytes # 4.2 K/mm3 (0.7-4.5); Lymphocytes % 22.3 % (10-50); Mean Corpuscular HGB Conc 31.1 g/dL (31.8-35.4); Mean Corpuscular Hemoglobin 28.8 pg (27.0-31.2); Mean Corpuscular Volume 92.6 fl (81-99); Mean Platelet Volume 10.1 fl (7.4-10.4); Monocytes # 0.8 K/mm3 (0.1-1.0); Monocytes % 4.4 % (1.7-9.3); Neutrophils % 69.4 % (37.0-80.0); Platelet Count 369 K/mm3 (142-424); Red Blood Count 4.69 M/mm3 (4.20-5.40); Red Cell Distribution Width 14.8 % (11.5-17.5); White Blood Count 18.8 K/mm3 (4.8-10.8)
[2019-07-24 10:58] LABS: MANUAL DIFFERENTIAL MANUAL DIFFERENTIAL (MANUAL DIFF)
[2019-07-24 11:07] LABS: Alanine Aminotransferase 29 U/L (12-78); Albumin Level 3.4 gm/dL (3.4-5.0); Alkaline Phosphatase 90 U/L (46-116); Anion Gap 20.7 mEq/L (5-15); Aspartate Amino Transferase 31 U/L (15-37); Bilirubin,Direct 0.1 mg/dL (0.0-0.2); Bilirubin,Indirect 0.4 mg/dL (0.0-0.9); Bilirubin,Total 0.5 mg/dL (0.2-1.0); Blood Urea Nitrogen 25 mg/dL (7-18); Calcium 9.1 mg/dL (8.5-10.1); Carbon Dioxide 20 mmol/L (21.0-32.0); Chloride 104 mmol/L (98-107); Creatinine Clearance Estimated 51 mL/min (50-200); Creatinine,Serum 1.13 mg/dL (0.55-1.02); Estimated Glomerular Filt Rate 47 ml/min (>60); GFR (African American) 57 ML/MIN (>60); Glucose 123 mg/dL (74-106); Potassium 3.7 mmoL/L (3.5-5.1); Sodium 141 mmol/L (136-145); Total Protein,Serum 8.7 gm/dL (6.4-8.2)
[2019-07-24 11:38] LABS: Adenovirus F 40/41, stool Not Detected (NotDetected); Astrovirus Not Detected (NotDetected); Campylobacter Not Detected (NotDetected); Clostridium Difficile A/B, PCR Not Detected (NotDetected); Cryptosporidium Not Detected (NotDetected); Cyclospora Cayetanesis Not Detected (NotDetected); Entamoeba histolytica Not Detected (NotDetected); Enteroaggregative E coli Not Detected (NotDetected); Enteropathogenic E coli Not Detected (NotDetected); Enterotoxigenic E coli Not Detected (NotDetected); Giardia lamblia Not Detected (NotDetected); Norovirus Not Detected (NotDetected); Plesimonas Shigalloides, PCR Not Detected (NotDetected); Rotavirus A Not Detected (NotDetected); Salmonella, PCR Not Detected (NotDetected); Sapovirus Not Detected (NotDetected); Shiga-like toxin E coli Not Detected (NotDetected); Shigella Enterovasive E coli Not Detected (NotDetected); Vibrio Cholerae Not Detected (NotDetected); Vibrio, PCR Not Detected (NotDetected); Yersinia Entercolitica, PCR Not Detected (NotDetected)
[2019-07-24 12:02] LABS: Eosinophils % 3 % (0-3); Lymphocytes % 23 % (10-50); Monocytes % 5 % (2-9); Neutrophils % 69 % (42-76); Total Cells Counted 100
[2019-07-24 12:03] LABS: Burr Cells 1+
[2019-07-24 12:04] LABS: Hypochromasia 1+; Platelet Estimate Normal; Poikilocytosis 1+
[2019-07-24 14:14] LABS: Microscopic, Urine URINE MICROSCOPIC (MICROSCOPIC)
[2019-07-24 14:15] LABS: Appearance,Urine CLEAR (Clear); Bilirubin,Urine Negative (Negative); Blood, Urine 1+ (Negative); Color,Urine YELLOW (Yellow); Glucose,Urine (UA) Negative (Negative); Ketones,Urine Negative (Negative); Leukocyte Esterase,Urine Negative (Negative); Nitrate,Urine Negative (Negative); PH,Urine 5.5 (5.0-8.5); Protein,Urine Negative (Negative); Specific Gravity, Urine 1.015 (1.005-1.030); Urobilinogen,Urine 0.2 EU/dl (0.2)
[2019-07-24 14:23] LABS: Bacteria,Urine Trace /lpf; RBC,Urine Occasional #/hpf (0-3); Squamous Epithelial Cell,Urine Occasional #/hpf (0-5); WBC,Urine Occasional #/hpf (0-3)
== END 2019-07-24 14:42 | disposition home or self-care (01) ==
LOC: INF 10:25
PROVIDERS: PCP Internal Medicine Adolescent Medicine; Visit Provider Internal Medicine Adolescent Medicine
DX: R19.7 Diarrhea, unspecified (principal); R11.2 Nausea with vomiting, unspecified; I95.1 Orthostatic hypotension
CPT/HCPCS: 80048; 80076; 81001; 85007; 85025; 87506; 96360; 96361

== ENCOUNTER → 2019-12-31 12:26 | Outpatient (CLI) | payer MEDICARE, OTHER, SELFPAY ==
--- NOTE | 2019-12-31 12:34 | XR_ITS ---
PROCEDURE: XR WRIST LT MIN 3V CLINICAL INDICATION: LT WRIST PAIN Pain and swelling COMPARISON: No exams were available for comparison FINDINGS: Osteoarthritic changes are present at the scapho trapezium joint and 1st metacarpal-carpal joint with mild lateral subluxation of the 1st metacarpal. Bony hypertrophic changes are present at the lateral 1st metacarpal carpal junction. There is a small cyst within the capitate measuring 6 mm. There are mild osteoarthritic changes with dystrophic calcification at the radial scaphoid joint laterally IMPRESSION: Osteoarthritic changes as detailed above Dictated by: Nirmal Guerrero MD 12/31/2019 12:56 Electronically signed by Nirmal Guerreor MD in [place] 12/31/2019 12:56
== END ==
PROVIDERS: PCP Internal Medicine Adolescent Medicine; Visit Provider Internal Medicine Adolescent Medicine
DX: M25.532 Pain in left wrist (principal)
CPT/HCPCS: 73110

== ENCOUNTER → 2021-01-20 08:37 | Outpatient (CLI) | payer MEDICARE, OTHER, SELFPAY ==
--- NOTE | 2021-01-20 08:38 | CA_ITS ---
APPROVED REPORT EXAM: Comprehensive 2D, Doppler, and color-flow Echocardiogram E Learning Developer: Charu Dumont CRT Ht: 5 ft 6 in Wt: 179lbs BSA: 1.91 BP: 122/64 mmHg Indications: Diabetes, Peripheral Edema, CAD, Hyperlipidemia, Hypertension/HDD, CABG, DD, pul HTN 2D Dimensions LVOT 1.87 cm (M/F) 1.5-2.5 LA Volume 36.80 mL LA Volume Index 19.30 mL/m2 (M/F) 16-34 M-Mode Dimensions RVDd 2.98 cm (0.9-2.6) LA Diam 3.92 cm (1.9-4.0) LVDd 4.96 cm (3.5-5.7) Ao Diam 3.33 cm (2.0-3.7) LVDs 3.45 cm (3.5-5.7) IVSd 1.41 cm (0.6-1.1) PWd 0.70 cm (0.6-1.1) EF (Teich) 57.70% FS 30.40% EDV (Teich) 116.10 mL TAPSE 1.68 (<1.7) ESV (Teich) 49.10 mL LV Diastology E Decel Time 257.00 (160-240 msec) E/A Ratio 1.02 MED E' 4.70 (< 7 cm/sec) MED A' 6.00 cm/s E'/MED E' Ratio 22.45 (>14) LAT E' 7.00 (<10 cm/sec) LAT A' 10.70 cm/s E/LAT E' Ratio 15.07 (>14) Aortic Valve AI PHT 732.00 ms AO Peak GR. 7.60 mmHg Mitral Valve MV A Velocity 104.00 (40-130 cm/s) E/A Ratio 1.02 MV Decel. Time 257.00 (160-240 ms) Pulmonary Valve PV Peak Velocity 131.00 (50-150 cm/s) Tricuspid Valve TR P. Velocity 262.00 cm/s RAP Estimate 10.00 mmHg RVSP 37.50 mmHg Left Ventricle Left atrium is mildly enlarged, left ventricle is normal size, mild concentric left ventricular hypertrophy, visually estimated ejection fraction 50% with no regional wall motion abnormality, diastolic parameters are inconclusive. Right Ventricle Right atrium and right ventricle mildly enlarged with normal contractility. Aortic Valve Aortic valve is minimally thickened and fibrosed, there is no aortic stenosis or aortic insufficiency. Mitral Valve Mitral valve grossly normal, there is trace mitral regurgitation. Tricuspid Valve Tricuspid grossly normal, there is trace tricuspid regurgitation, tricuspid regurgitation jet velocity is inadequate for calculation of the right ventricular systolic pressure. Pulmonic Valve Pulmonic valve is poorly visualized. Great Vessels Aortic root is normal size. Pericardium No significant pericardial effusion noted. Conclusion 1. Mildly enlarged left atrium, normal left ventricular size, mild concentric left ventricular hypertrophy, visually estimated ejection fraction 50% with no regional wall motion abnormality, diastolic parameters are inconclusive. 2. Mildly enlarged right ventricle with normal contractility. 3. Mild mitral and tricuspid regurgitation. 4. No significant pericardial effusion noted. Electronically signed by : Benitez Evans, 01/20/2021 18:10:58
--- NOTE | 2021-01-20 08:38 | CA_ITS ---
APPROVED REPORT Mines Safety Engineer: AZAEL Laterality: Bilateral Study Quality: Good Indications: PHANI Risk Factors Hypertension: CAD, Doppler Spectral Velocity Analysis ECA (R) 88.30/10.30 cm/s ECA (L) 104.50/9.40 cm/s dICA (R) 115.70/19.70 cm/s dICA (L) 89.80/21.40 cm/s Charlotte (R) 109.70/23.10 cm/s Charlotte (L) 121.90/21.40 cm/s pICA (R) 105.40/31.70 cm/s pICA (L) 161.50/37.40 cm/s dCCA (R) 60.80/14.60 cm/s dCCA (L) 84.80/23.10 cm/s pCCA (R) 127.20/15.00 cm/s pCCA (L) 88.30/16.30 cm/s Vert (R) 57.40/12.00 cm/s Vert (L) 52.30/14.60 cm/s ICA/CCA 1.90 ICA/CCA 1.90 Findings Study suggests 20-49% stenosis involving the right internal carotid artery. Study suggests 50-69% (lower end of scale) stenosis involving the left internal carotid artery. Duplex evaluation demonstrates antegrade flow of the bilateral vertebral arteries. Conclusion Study suggests 20-49% stenosis involving the right internal carotid artery. Study suggests 50-69% (lower end of scale) stenosis involving the left internal carotid artery. Duplex evaluation demonstrates antegrade flow of the bilateral vertebral arteries. Electronically signed by : Waleska Chang, 01/20/2021 16:38:44
== END ==
PROVIDERS: PCP Internal Medicine Adolescent Medicine; Visit Provider Nurse Practitioner Family
DX: I51.89 Other ill-defined heart diseases (principal); I65.23 Occlusion and stenosis of bilateral carotid arteries
CPT/HCPCS: 93306; 93880

== ENCOUNTER → 2021-05-19 08:20 | Outpatient (CLI) | payer MEDICARE, OTHER, SELFPAY ==
[2021-05-20 08:53] LABS: Basophils # 0.1 K/mm3 (0-0.2); Basophils % 0.6 % (0.1-2.0); Eosinophils # 0.4 K/mm3 (0.0-0.4); Eosinophils % 2.9 % (0.1-12.0); Hematocrit 43.9 % (37.0-47.0); Lymphocytes # 3.2 K/mm3 (0.7-4.5); Lymphocytes % 22.9 % (10-50); Mean Corpuscular HGB Conc 31.9 g/dL (31.8-35.4); Mean Corpuscular Hemoglobin 30.5 pg (27.0-31.2); Mean Corpuscular Volume 95.5 fl (81-99); Mean Platelet Volume 13.2 fl (7.4-10.4); Monocytes # 0.6 K/mm3 (0.1-1.0); Monocytes % 4.2 % (1.7-9.3); Neutrophils # 9.8 K/mm3 (1.8-7.8); Neutrophils % 69.4 % (37.0-80.0); Platelet Count 322 K/mm3 (142-424); Red Blood Count 4.59 M/mm3 (4.20-5.40); Red Cell Distribution Width 14.6 % (11.5-17.5); White Blood Count 14.1 K/mm3 (4.8-10.8)
[2021-05-20 12:30] LABS: Chloride 106 mmol/L (98-107); Potassium 4.8 mmoL/L (3.5-5.1); Sodium 139 mmol/L (136-145)
[2021-05-20 12:33] LABS: Alanine Aminotransferase 41 U/L (12-78); Albumin Level 4.1 g/dl (3.5-5.0); Albumin/Globulin Ratio 1.1 (1.1-1.8); Alkaline Phosphatase 120 U/L (38-126); Anion Gap 18.8 mEq/L (5-15); Aspartate Amino Transferase 87 U/L (14-36); Bilirubin,Total 0.4 mg/dl (0.2-1.3); Blood Urea Nitrogen 14 mg/dl (7-17); Carbon Dioxide 19 mmol/L (22.0-30.0); Cholesterol 171 mg/dl (140-200); Estimated Glomerular Filt Rate 97 ml/min (>60); GFR (African American) 117 ML/MIN (>60); Globulin 3.7 g/dL (1.3-3.2); Total Protein,Serum 7.8 g/dl (6.3-8.2)
[2021-05-20 12:34] LABS: Calcium 9.3 mg/dl (8.4-10.2); Chol/HDL Ratio 8.6 (1-3.5); Glucose 179 mg/dl (74-100); HDL Cholesterol 20 mg/dl (40-60)
[2021-05-20 12:49] LABS: Direct LDL Cholesterol < 30.00 mg/dL (100-129); Triglycerides 840 mg/dl (30-150)
[2021-05-20 13:02] LABS: Thyroid Stimulating Hormone 2.72 uIU/mL (0.465-4.68)
[2021-05-20 14:14] LABS: 25-OH Vitamin D, Total 23.8 ng/mL (30-100)
[2021-05-20 14:18] LABS: Hemoglobin A1C 8.7 % (4.0-6.0)
[2021-05-20 22:58] LABS: Vitamin B12 258 pg/mL (239-931)
== END ==
PROVIDERS: Visit Provider Internal Medicine Adolescent Medicine
DX: I25.10 Atherosclerotic heart disease of native coronary artery without angina pectoris (principal); E11.9 Type 2 diabetes mellitus without complications; E78.5 Hyperlipidemia, unspecified; E03.9 Hypothyroidism, unspecified; E53.8 Deficiency of other specified B group vitamins; E55.9 Vitamin D deficiency, unspecified; Z79.84 Long term (current) use of oral hypoglycemic drugs
CPT/HCPCS: 80053; 80061; 82306; 82607; 83036; 84443; 85025

== ENCOUNTER → 2021-09-25 07:53 | Outpatient (CLI) | payer MEDICARE, OTHER, SELFPAY ==
--- NOTE | 2021-09-25 08:00 | MM_ITS ---
PROCEDURE INFORMATION: Exam: MG Bilateral Screening 3D Mammography Exam date and time: 09/25/2021 8:15 AM Age: 76 years old Clinical indication: Screening mammogram TECHNIQUE: Imaging protocol: Bilateral Screening tomosynthesis and 2D mammography including computer-aided detection (CAD) when performed. COMPARISON: 1. MG MM DIG MAMM DX UNILAT RT CAD 02/27/2019 2:09 PM 2. MG DIG MAMM-SCREEN FELA 02/01/2019 10:29 AM 3. MG DMSB DIG MAMM-SCREEN FELA 11/13/2015 9:50 AM 4. US BREAST RT COMPLETE 02/27/2019 3:14 PM FINDINGS: MAMMOGRAPHY: Breast composition: There are scattered areas of fibroglandular density. Mass: None. Architectural distortion: No new or suspicious architectural distortion. Calcifications: Calcifications within the lower central right middle and posterior 1/3 should be assessed with spot MAGNIFICATION views in CC/ML projection for morphologic characterization. Asymmetric density: No new or suspicious asymmetric density is present Skin thickening: None. Axillary adenopathy: None. IMPRESSION: Calcifications within the lower central right middle and posterior 1/3 should be assessed with spot MAGNIFICATION views in CC/ML projection for morphologic characterization. ASSESSMENT: BI-RADS category 0: Incomplete-need additional imaging evaluation
--- NOTE | 2021-09-25 08:01 | XR_ITS ---
FINAL REPORT TECHNIQUE: Bone densitometry calculations of the lumbar spine and both hips were obtained. CLINICAL HISTORY: . FINDINGS: Using L1-4, the bone mineral density of the spine is 1.335 g/cm2, corresponding to T-score of 2.6. Using the left hip, the bone mineral density of the femoral neck is 0.965 g/cm2, corresponding to a T-score of 0.2. Using the right hip, the bone mineral density of the femoral neck is 1.017 g/cm2, corresponding to a T-score of 0.6. NOTE: T-score: Standard deviation compared with peak bone mass of young adult mean. *Following the recommendations of the International Society of Bone densitometry, classification of hip BMD is based on the lower of two T-scores; total hip or femoral neck. IMPRESSION: Normal bone mineral density of the lumbar spine and both hips. Reviewed, Interpreted and Dictated by Deny Leal MD Transcribed by Lexis Hutchins Authenticated by Deny Leal MD on 09/25/2021 10:56:38 AM [facility]
== END ==
PROVIDERS: PCP Internal Medicine Adolescent Medicine; Visit Provider Internal Medicine Adolescent Medicine
DX: Z12.31 Encounter for screening mammogram for malignant neoplasm of breast (principal); Z78.0 Asymptomatic menopausal state; Z13.820 Encounter for screening for osteoporosis
CPT/HCPCS: 77063; 77067; 77080

== ENCOUNTER → 2021-10-08 13:16 | Outpatient (CLI) | payer MEDICARE, OTHER, SELFPAY ==
--- NOTE | 2021-10-08 13:21 | MM_ITS ---
PROCEDURE INFORMATION: Exam: MG Right Diagnostic Breast Tomosynthesis Exam date and time: 10/08/2021 1:20 PM Age: 76 years old Clinical indication: Patient recalled on the basis of a screening mammogram for further evaluation; Right breast; calcifications TECHNIQUE: Imaging protocol: Right Diagnostic tomosynthesis and 2D mammography including computer-aided detection (CAD) when performed. Unilateral or bilateral exam. COMPARISON: 1. MG MM DIG SCREENING MAMM BI W/CAD 09/25/2021 8:15 AM 2. MG MM DIG MAMM DX UNILAT RT CAD 02/27/2019 2:09 PM FINDINGS: MAMMOGRAPHY: Digital diagnostic magnification views of the right breast demonstrate uniformly dense predominantly round well-circumscribed calcifications without tight clustering or significant pleomorphism. The findings, in all likelihood, reflects benign dystrophic calcium. IMPRESSION: Probably benign right breast calcifications in the central breast. A six-month follow-up diagnostic right mammogram with magnification views are recommended to ensure stability over time unless otherwise clinically indicated. ASSESSMENT: BI-RADS Category 3: Probably benign
== END ==
PROVIDERS: PCP Internal Medicine Adolescent Medicine; Visit Provider Internal Medicine Adolescent Medicine
DX: R92.8 Other abnormal and inconclusive findings on diagnostic imaging of breast (principal)
CPT/HCPCS: 77061; 77065; G0279

== ENCOUNTER → 2022-02-24 09:18 | Outpatient (CLI) | payer MEDICARE, OTHER, SELFPAY ==
--- NOTE | 2022-02-24 09:19 | CA_ITS ---
FINAL REPORT TECHNIQUE: Color Doppler, duplex Doppler and sparrow scale sonography of the bilateral neck arterial vasculature was performed. Velocities were measured in the carotid arteries. Stenosis evaluation based on the validated velocity criteria. CLINICAL HISTORY: PHANI COMPARISON: 01/20/2021 FINDINGS: The peak systolic velocity of the right common carotid artery is 124 cm/s. The peak systolic velocity of the right internal carotid artery is 111 cm/s and end diastolic velocity 30 cm/s. The ICA/CCA ratio is 1.83. A small amount of plaque is present. The right external carotid artery is patent. The right vertebral artery is patent with antegrade flow. The peak systolic velocity of the left common carotid artery is 81 cm/s. The peak systolic velocity of the left internal carotid artery is 184 cm/s and end diastolic velocity 43 cm/s. The ICA/CCA ratio is 2.90. A moderate amount of plaque is present. The left external carotid artery is patent.The left vertebral artery is patent with antegrade flow. IMPRESSION: Less than 50% stenosis on the right. Greater than 50% stenosis on the left. Bilateral patent vertebral arteries with antegrade flow. If indicated, CTA or MRA could further evaluate. Reviewed, Interpreted and Dictated by Deny Leal MD Transcribed by Alise So Authenticated and [facility]
== END ==
PROVIDERS: PCP Internal Medicine Adolescent Medicine; Visit Provider Nurse Practitioner
DX: E11.9 Type 2 diabetes mellitus without complications (principal); E78.5 Hyperlipidemia, unspecified; I07.1 Rheumatic tricuspid insufficiency; I11.9 Hypertensive heart disease without heart failure; I25.10 Atherosclerotic heart disease of native coronary artery without angina pectoris; I27.20 Pulmonary hypertension, unspecified; I35.1 Nonrheumatic aortic (valve) insufficiency; Z95.1 Presence of aortocoronary bypass graft; I65.23 Occlusion and stenosis of bilateral carotid arteries; Z79.84 Long term (current) use of oral hypoglycemic drugs
CPT/HCPCS: 93880

== ENCOUNTER → 2022-04-08 12:46 | Outpatient (CLI) | payer MEDICARE, OTHER, SELFPAY ==
--- NOTE | 2022-04-08 12:51 | XR_ITS ---
FINAL REPORT CLINICAL HISTORY: CELLULITIS OF LEFT FOOT FINDINGS: LEFT FOOT: Three views of the left foot were obtained. There is no acute fracture or dislocation. There are mild degenerative changes. There is a small calcification in the region of the posterior plantar aponeurosis. No other soft tissue abnormality is identified. IMPRESSION: Mild degenerative changes with no acute bony abnormality. Reviewed, Interpreted and Dictated by Elio Fontanez III, MD Transcribed by Lexis Hutchins Authenticated and . [facility]
== END ==
PROVIDERS: PCP Internal Medicine Adolescent Medicine; Visit Provider Internal Medicine Adolescent Medicine
DX: L03.116 Cellulitis of left lower limb (principal)
CPT/HCPCS: 73630

== ENCOUNTER → 2022-04-16 10:52 | Outpatient (CLI) | payer MEDICARE, OTHER, SELFPAY ==
--- NOTE | 2022-04-16 10:58 | MR_ITS ---
FINAL REPORT CLINICAL HISTORY: LEFT FOOT PAIN left foot pain x 3-4 weeks after stepping on rock redness / swelling and pain all over foot hurts when walking on it FINDINGS: Multiplanar MR imaging of the left foot was performed without contrast. There is bone bruise/marrow edema in the medial cuneiform, middle cuneiform, lateral cuneiform, and proximal 2nd and 3rd metatarsals. There is a probable small nondisplaced fracture of the proximal 2nd metatarsal well seen on series 7, image 17. There are mild degenerative changes of the midfoot. There is a 16 mm mass in the distal tibia, may represent a cyst or enchondroma. Mild diffuse soft tissue edema is identified. The flexor and extensor tendons are intact. No ligamentous injury is identified. The musculature is intact. The plantar aponeurosis is intact. IMPRESSION: Probable small nondisplaced fracture of the proximal 2nd metatarsal with areas of bone bruise/marrow edema. Possible cyst or enchondroma in the distal tibia. Reviewed, Interpreted and Dictated by Elio Fontanez III, MD Transcribed by Alise So Authenticated and [facility]
== END ==
PROVIDERS: PCP Internal Medicine Adolescent Medicine; Visit Provider Internal Medicine Adolescent Medicine
DX: M79.672 Pain in left foot (principal)
CPT/HCPCS: 73718

== ENCOUNTER 2022-04-20 11:38 | Outpatient (RCR) | payer MEDICARE, OTHER, SELFPAY | END 2022-04-20 12:30 | disposition home or self-care (01) | LOC: PT 11:38 | PROVIDERS: Visit Provider Orthopaedic Surgery | DX: S92.325D Nondisplaced fracture of second metatarsal bone, left foot, subsequent encounter for fracture with routine healing (principal) | CPT/HCPCS: 97760 ==

== ENCOUNTER → 2022-05-12 08:51 | Outpatient (CLI) | payer MEDICARE, OTHER, SELFPAY ==
--- NOTE | 2022-05-12 08:56 | XR_ITS ---
FINAL REPORT CLINICAL HISTORY: left foot injury,pain after stepping on a rock 1 mos ago COMPARISON: 04/08/2022 FINDINGS: LEFT FOOT Three views of the left foot demonstrate no acute fracture or dislocation. The visualized joint spaces are normally aligned. There is a minimal plantar calcaneal spur. The soft tissues are unremarkable. IMPRESSION: No acute bony abnormality. Reviewed, Interpreted and Dictated by Deny Leal MD Transcribed by Lexis Hutchins Authenticated and [facility]
== END ==
PROVIDERS: PCP Internal Medicine Adolescent Medicine; Visit Provider Physician Assistant Surgical
DX: S99.922A Unspecified injury of left foot, initial encounter (principal); M79.672 Pain in left foot
CPT/HCPCS: 73630

== ENCOUNTER → 2022-06-01 08:53 | Outpatient (CLI) | payer MEDICARE, OTHER, SELFPAY ==
--- NOTE | 2022-06-01 09:00 | XR_ITS ---
FINAL REPORT CLINICAL HISTORY: toe fracture COMPARISON: MRI dated 04/16/2022 FINDINGS: Left foot Three views were obtained. There is no acute fracture or dislocation. There are mild diffuse degenerative changes. The previously question subacute fracture of the 2nd metatarsal on the MRI only is not evident on today's exam. No soft tissue abnormality is identified. IMPRESSION: No acute process. Reviewed, Interpreted and Dictated by Reuben Webb MD Transcribed by Alise So Authenticated and [facility]
== END ==
PROVIDERS: PCP Internal Medicine Adolescent Medicine; Visit Provider Physician Assistant Surgical
DX: S99.922A Unspecified injury of left foot, initial encounter (principal); M79.672 Pain in left foot
CPT/HCPCS: 73630

== ENCOUNTER 2022-07-14 13:00 | Outpatient (RCR) | payer MEDICARE, OTHER, SELFPAY ==
--- NOTE | 2022-06-03 16:10 | HMH.PTOPEV ---
PT Outpatient Evaluation Rehab PT Outpatient Evaluation Start: 06/03/22 14:47 Freq: Status: Active Protocol: Document 06/03/22 14:48 [id number] (Rec: 06/03/22 16:10 PDESEROUX [id number]) E-signed By Pipo Hernandez, PT Outpatient Therapy Subjective History Subjective History Pt. is a 77 year old female whom presents to [facility] in [place] for the initial evaluation this date( 06/03/22) w/ c/o subacute and intermittent LLE ankle/ft. P!, edema, and weakness of traumatic onset 9 weeks ago. Pt. reports she went outside in her backyard barefoot and stepped on a rock as MARILYN and symptom onset. Diagnostic imaging positive for a fx., but states it has healed w/ recent diagnostic imaging per pt. report. Therefore, pt. reports donning [employer]. walker x4 wks., was released from [employer]. yesterday(06/02/22). Pt. denies having injections for current complaint. Pt. reports prolonged ambualtion/ standing, negotiating stairs and uneven terrain increase symptoms. Pt. reports having symptom relief w/ ice and elevation, and rest. Current medications include Alprazolam , Iron, Aspirin, Vit. C, Carvedilol, Clopidogrel, Escitalopram, Fenofibrate, Levothyroxine, Jardiance, and Furosemide. PMH includes S/P open heart surgery, Myocardial Infarction, Appendectomy, Splenectomy, Hypertension, Hyperlipidemia, parents from myocardial infarction, and DM-II. Pt. denies history of cancer(self), denies pacemaker, denies latex allergy, reports medicational allergy to Betadine. Chief Complaint Pain,Swelling,Gives out/
== END 2022-07-26 09:08 | disposition home or self-care (01) ==
LOC: PT.CARL 13:00
PROVIDERS: PCP Internal Medicine Adolescent Medicine; Visit Provider Orthopaedic Surgery
DX: M76.72 Peroneal tendinitis, left leg (principal)
CPT/HCPCS: 97010; 97014; 97035; 97110; 97112; 97140; 97163; 97164; G0283

== ENCOUNTER → 2022-07-15 10:49 | Outpatient (CLI) | payer MEDICARE, OTHER, SELFPAY ==
--- NOTE | 2022-07-15 10:56 | XR_ITS ---
FINAL REPORT CLINICAL HISTORY: fracture COMPARISON: 05/12/2022 FINDINGS: Left foot Three views were obtained. There is calcification adjacent to the 5th middle phalanx which is stable and of uncertain significance, could represent prior fracture. No new bony abnormality is identified. There are mild degenerative changes. IMPRESSION: No acute process. Reviewed, Interpreted and Dictated by Elio Fontanez III, MD Transcribed by Alise So Authenticated and [facility]
== END ==
PROVIDERS: PCP Internal Medicine Adolescent Medicine; Visit Provider Podiatrist
DX: S99.922A Unspecified injury of left foot, initial encounter (principal); M79.672 Pain in left foot
CPT/HCPCS: 73630

== ENCOUNTER → 2022-08-23 15:14 | Outpatient (CLI) | payer MEDICARE, OTHER, SELFPAY ==
--- NOTE | 2022-08-23 15:17 | MR_ITS ---
FINAL REPORT CLINICAL HISTORY: LEFT FOOT PAIN x months. lateral sided pain. COMPARISON: 04/16/2022 FINDINGS: Multiplanar MR imaging of the less foot was performed without contrast. There is a stable focus of abnormal signal in the distal tibial a measuring 18 mm in length. It is nonaggressive in appearance and may represent an enchondroma or other benign process. There is mild marrow edema in multiple bones of the midfoot. The flexor and extensor tendons are intact. No ligamentous injury is identified. The musculature is intact. The plantar aponeurosis is intact. There is soft tissue edema of the dorsal and lateral foot which appears similar to the prior exam. IMPRESSION: Stable soft tissue edema of the dorsal and lateral foot. Mild degenerative change with reactive bone marrow edema in the midfoot. No new abnormality identified. Reviewed, Interpreted and Dictated by Elio Fontanez III, MD Transcribed by Lexis Hutchins Authenticated and [facility]
== END ==
PROVIDERS: PCP Internal Medicine Adolescent Medicine; Visit Provider Internal Medicine Adolescent Medicine
DX: M79.672 Pain in left foot (principal)
CPT/HCPCS: 73718

== ENCOUNTER → 2022-09-22 09:36 | Outpatient (CLI) | payer MEDICARE, OTHER, SELFPAY ==
[2022-09-22 10:26] LABS: Basophils # 0.2 K/mm3 (0-0.2); Basophils % 1.4 % (0.1-2.0); Eosinophils # 0.5 K/mm3 (0.0-0.4); Eosinophils % 3.1 % (0.1-12.0); Hematocrit 43.4 % (37.0-47.0); Hemoglobin 14.1 g/dL (12.2-16.2); Lymphocytes # 4.9 K/mm3 (0.7-4.5); Lymphocytes % 33.9 % (10-50); Mean Corpuscular HGB Conc 32.5 g/dL (31.8-35.4); Mean Corpuscular Hemoglobin 31.2 pg (27.0-31.2); Mean Corpuscular Volume 96.1 fl (81-99); Mean Platelet Volume 11.2 fl (7.4-10.4); Monocytes # 0.8 K/mm3 (0.1-1.0); Monocytes % 5.3 % (1.7-9.3); Neutrophils # 8.1 K/mm3 (1.8-7.8); Neutrophils % 56.4 % (37.0-80.0); Platelet Count 325 K/mm3 (142-424); Red Blood Count 4.51 M/mm3 (4.20-5.40); Red Cell Distribution Width 14.2 % (11.5-17.5); White Blood Count 14.4 K/mm3 (4.8-10.8)
[2022-09-22 10:45] LABS: Uric Acid 4.9 mg/dl (2.5-6.2)
[2022-09-22 10:58] LABS: C-Reactive Protein 4.5 mg/L (0-4)
[2022-09-22 10:59] LABS: Erythrocyte Sedimentation Rate 61 mm/hr (0-30)
== END ==
PROVIDERS: PCP Internal Medicine Adolescent Medicine; Visit Provider Internal Medicine Adolescent Medicine
DX: L03.115 Cellulitis of right lower limb (principal)
CPT/HCPCS: 36415; 84550; 85025; 85651; 86140

== ENCOUNTER → 2023-05-27 12:39 | Outpatient (CLI) | payer MEDICARE, OTHER, SELFPAY ==
--- NOTE | 2023-05-27 12:40 | CA_ITS ---
APPROVED REPORT EXAM: Comprehensive 2D, Doppler, and color-flow Echocardiogram Application Systems Administrator: LILIA Castro, RVS Ht: 5 ft 3 in Wt: 168lbs BSA: 1.80 BP: 131/64 mmHg Indications: CAD-CABG >20 years ago, PHTN, DM, HTN, HLD 2D Dimensions Aortic Root 2.78 cm LA Volume 59.80 mL Left Atrium 3.55 cm LA Volume Index 32.50 mL/m2 (M/F) 16-34 LVOT 1.92 cm (M/F) 1.5-2.5 M-Mode Dimensions RVDd 3.05 cm (0.9-2.6) LA Diam 4.16 cm (1.9-4.0) LVDd 5.57 cm (3.5-5.7) Ao Diam 2.54 cm (2.0-3.7) LVDs 4.12 cm (3.5-5.7) IVSd 0.91 cm (0.6-1.1) PWd 0.91 cm (0.6-1.1) EF (Teich) 50.50% EPSs 0.83 cm FS 26.00% EDV (Teich) 151.80 mL TAPSE 1.72 (<1.7) ESV (Teich) 75.10 mL LV Diastology E Decel Time 190.00 (160-240 msec) E/A Ratio 0.84 MED E' 5.50 (< 7 cm/sec) MED A' 9.90 cm/s E'/MED E' Ratio 20.53 (>14) LAT E' 8.30 (<10 cm/sec) LAT A' 12.00 cm/s E/LAT E' Ratio 13.60 (>14) Aortic Valve LVOT Max 114.00 (70-110 cm/s) LVOT VTI 23.91 cm AoV Peak Martin. 164.00 (50-130 cm/s) AI PHT 468.00 ms AO Peak GR. 10.80 mmHg AO Mean GR. 6.00 (<5 mmHg) AO VTI 34.71 (18-25 cm) SHOSHANA (VTI) 1.99 (2.5-4.5 cm2) Mitral Valve MV A Velocity 135.00 (40-130 cm/s) E/A Ratio 0.84 MV Decel. Time 190.00 (160-240 ms) MV Mean Gr. 3.30 (<2mmHg) Tricuspid Valve TR P. Velocity 301.00 cm/s RAP Estimate 10.00 mmHg RVSP 46.30 mmHg Left Ventricle The left ventricle is normal size. The left ventricular systolic function is normal. The left ventricular ejection fraction is within the normal range. There is normal left ventricular wall thickness. There is normal LV segmental wall motion. Grade 2 diastolic dysfunction is present. LVEF is 60%. Right Ventricle The right ventricle is normal size. The right ventricular systolic function is normal. Atria The left atrium is mildly dilated. The right atrium size is mildly dilated. Aortic Valve The aortic valve is mildly thickened. There is no aortic valvular stenosis. Moderate aortic regurgitation. Mitral Valve The mitral valve leaflets are mildly thickened. No evidence of mitral valve stenosis. Mild mitral regurgitation. Tricuspid Valve The tricuspid valve leaflets are thin and pliable. Moderate tricuspid regurgitation. RVSP is 35 mmHg + RA pressure. Pulmonic Valve The pulmonary valve is normal in structure. Trace pulmonic regurgitation. Great Vessels The aortic root is normal in size. The ascending aorta is normal in size. The IVC is not well-visualized. Pericardium There is no pericardial effusion. Other Information Study Quality: Fair Conclusion Normal biventricular systolic function. Grade 2 diastolic dysfunction. Mild biatrial dilatation. Mild MR. Moderate AI. Moderate TR. Elevated RVSP 35 mmHg + RA pressure. Electronically signed by : Jennifer Garcia MD 05/30/2023 23:09:56
== END ==
PROVIDERS: PCP Internal Medicine Adolescent Medicine; Visit Provider Internal Medicine Adolescent Medicine
DX: R60.0 Localized edema (principal); R94.31 Abnormal electrocardiogram [ECG] [EKG]; I25.10 Atherosclerotic heart disease of native coronary artery without angina pectoris
CPT/HCPCS: 93306

== ENCOUNTER 2023-10-19 07:52 | Outpatient (CLI) | payer MEDICARE, OTHER, SELFPAY ==
--- NOTE | 2023-10-19 07:56 | MM_ITS ---
PROCEDURE INFORMATION: Exam: MG Bilateral Screening 3D Mammography Exam date and time: 10/19/2023 8:10 AM Age: 78 years old Clinical indication: Screening mammogram. Family history of breast cancer in the patient's sister postmenopausal TECHNIQUE: Imaging protocol: Bilateral Screening tomosynthesis and 2D mammography including computer-aided detection (CAD) when performed. COMPARISON: 1. MG MM DIG MAMM DX UNILAT RT CAD 10/08/2021 1:20 PM 2. MG MM DIG SCREENING MAMM BI W/CAD 09/25/2021 8:15 AM 3. MG MM DIG MAMM DX UNILAT RT CAD 02/27/2019 2:09 PM 4. MG DIG MAMM-SCREEN FELA 02/01/2019 10:29 AM FINDINGS: MAMMOGRAPHY: Breast composition: There are scattered areas of fibroglandular density. Mass: None. Architectural distortion: No new or suspicious architectural distortion. Calcifications: No new or suspicious calcifications are present Asymmetric density: No new or suspicious asymmetric density is present Skin thickening: None. Axillary adenopathy: None. IMPRESSION: No mammographic evidence of malignancy. Recommend annual screening mammography unless otherwise clinically indicated. ASSESSMENT: BI-RADS category 1: Negative.
== END 2023-10-19 23:59 ==
LOC: RAD 07:52
PROVIDERS: PCP Internal Medicine Adolescent Medicine; Visit Provider Internal Medicine Adolescent Medicine
DX: Z12.31 Encounter for screening mammogram for malignant neoplasm of breast (principal)
CPT/HCPCS: 77063; 77067

== ENCOUNTER 2024-01-24 07:33 | Observation (INO) | payer MEDICARE, OTHER, SELFPAY ==
[2024-01-24] VITALS (13 sets, daily range): BP systolic 139–195; BP diastolic 63–99; PULSE 69–92; RESP 17–20; TEMP 36.5–36.6; O2SAT 95–100; BMI 28.5; BMI 28.8
--- NOTE | 2024-01-24 07:54 | XR_ITS ---
FINAL REPORT CLINICAL HISTORY: cough, shortness of breath COMPARISON: 09/18/2015 FINDINGS: No acute pulmonary density is evident. There is no evidence of effusion or other pleural disease. Status post CABG. The cardiac silhouette is unremarkable. IMPRESSION: No acute process. Reviewed, Interpreted and Dictated by Reuben Webb MD Transcribed by Iman Marie Authenticated and [facility]
--- NOTE | 2024-01-24 07:57 | ED_ITS ---
Discharge Plan Disposition Patient Disposition: Admitted Clinical Impressions Clinical Impression: Elevated troponin, Viral URI with cough Discharge ED Provider: Anny Garrett General Adult HPI General Chief complaint: Chest Pain Stated complaint: soa, fever, high bp, cough, sore throat Time Seen by Provider: 01/24/24 07:48 History of Present Illness HPI narrative: This patient is an 79-year-old female with a history of CAD status post CABG, asplenia, hypertension, hyperlipidemia, hypertensive heart disease, pulmonary hypertension, PAD, hypothyroidism, GERD, diabetes, and reported contrast allergy with successful CT with contrast in the past after premedication presenting to the emergency department for evaluation with concern for sore throat, cough, congestion, runny nose, ear pressure, and shortness of breath. Her biggest concern is air hunger and feeling like she cannot get enough air in. She notes that this all started this morning around 4:00 AM. It woke her up from sleep. She did just return from a trip to the beach a few days ago. No other concerns noted at this time. Related Data Home Medications Medication Instructions Recorded Confirmed aspirin 81 mg tablet,delayed 81 mg PO DAILY 02/22/22 01/24/24 release fenofibrate nanocrystallized 145 145 mg PO DAILY 02/22/22 01/24/24 mg tablet pantoprazole 40 mg tablet,delayed 40 mg PO DAILY 02/22/22 01/24/24 release atorvastatin 80 mg tablet 80 mg PO DAILY 01/24/24 01/24/24 carvedilol 25 mg tablet 25 mg PO BID 01/24/24 01/24/24 clopidogrel 75 mg tablet 75 mg PO DAILY 01/24/24 01/24/24 furosemide 20 mg tablet 20 mg PO HS 01/24/24 01/24/24 furosemide 20 mg tablet 40 mg PO DAILY 01/24/24 01/24/24 insulin glargine 100 30 unit SQ DAILY 01/24/24 01/24/24 unit-lixisenatide 33 mcg/mL subcutaneous pen (Soliqua 100/33) levothyroxine 75 mcg tablet 75 mcg PO DAILY 01/24/24 01/24/24 niacin 500 mg tablet 500 mg PO BID 01/24/24 01/24/24 sitagliptin phos 50 mg-metformin 1 tab PO QPMWITHMEAL 01/24/24 01/24/24 ER 1,000 mg tablet,extend rel 24h mp (Janumet XR) Allergies Allergy/AdvReac Type Severity Reaction Status Date / Time Iodinated Contrast Media Allergy Unknown SHORTNESS Verified 08/25/22 10:06 [IODINATED CONTRAST MEDIA - OF BREATH ORAL AND] Sulfa (Sulfonamide Allergy Unknown I-HIVES Verified 08/25/22 10:06 Antibiotics) [SULFA (SULFONAMIDE ANTIBIOTICS)] sulfamethoxazole Allergy Unknown I-HIVES Verified 08/25/22 10:06 [From BACTRIM] trimethoprim [From BACTRIM] Allergy Unknown I-HIVES Verified 08/25/22 10:06 PFSH [facility], [facility] Disclaimer: The information contained in this section may have been updated after the patient was seen, as this information can be updated by other users. Medical History PAD (peripheral artery disease) Diabetes Hypertension Elevated troponin Diastolic dysfunction Aortic regurgitation Pulmonary hypertension Carotid artery stenosis Superior mesenteric artery stenosis CAD (coronary artery disease) HLD (hyperlipidemia) HHD (hypertensive heart disease) Family history of coronary artery disease Surgical History H/O coronary artery bypass surgery Social History Smoking Status: Unknown if ever smoked second hand exposure: No alcohol intake: never substance use type: denies use current occupational status: retired Travel in the last 8 weeks: Inside the [facility] household members: none housing: house current occupational exposures/hazards: No caffeine: Yes ROS Obtained: Yes All systems reviewed & no additional complaints except as documented Physical Exam General General appearance: alert and anxious Comment: Very anxious appearing, tachypneic, pursed lip breathing Head Head exam: atraumatic and normocephalic Eye Eye exam: Present normal appearance, PERRL and EOMI ENT ENT exam: Present normal exam, normal oropharynx, mucous membranes moist, TM's normal bilaterally and normal external ear exam Neck Neck exam: Present normal inspection, full ROM and trachea midline; Absent tenderness, meningismus or lymphadenopathy Chest Chest inspection: Present normal inspection and symmetric chest wall rise; Absent tenderness Respiratory Respiratory exam: Present normal lung sounds bilaterally (Faint bilateral end expiratory wheezing), respiratory distress (Mild with tachypnea and party coordinator muscle use), wheezes, accessory muscle use and prolonged expiratory phase; Absent stridor Cardiovascular Cardiovascular exam: Present regular rate and normal rhythm Abdominal Exam Abdominal exam: Present soft; Absent distention, tenderness or guarding Extremities Exam Extremities exam: Present normal inspection, full ROM and normal capillary refill; Absent tenderness or edema Back Exam Back exam: Present normal inspection and full ROM; Absent tenderness Neurological Exam Neurological exam: Present alert, oriented X3, CN II-XII intact and normal gait; Absent motor sensory deficit Psychiatric Psychiatric exam: Present normal affect and normal mood Skin Skin exam: Present warm and dry Medical Decision Making Medical Records Medical records reviewed: Yes I reviewed the patient's medical records. Josue Inquiry Pt receiving controlled substance: No Vital Signs: 01/24/24 07:35 01/24/24 08:01 01/24/24 08:30 Temperature 97.7 F Temperature Source Pulse Rate 77 73 Pulse Rate [Left Radial] 90 Respiratory Rate 18 Blood Pressure 141/63 H 158/66 H Blood Pressure [Right Arm] 195/90 H Blood Pressure Mean 96 96 Blood Pressure Mean [Right Arm] 125 Blood Pressure Source [Right Arm] Automatic Cuff Blood Pressure Position [Right Arm] Sitting 02 Sat by Pulse Oximetry 98 95 95 Oxygen Delivery Method Room Air 01/24/24 10:00 01/24/24 10:30 01/24/24 11:01 Temperature Temperature Source Pulse Rate 76 69 Pulse Rate [Left Radial] Respiratory Rate Blood Pressure 142/77 H 139/99 H 166/67 H Blood Pressure [Right Arm] Blood Pressure Mean 114 115 100 Blood Pressure Mean [Right Arm] Blood Pressure Source [Right Arm] Blood Pressure Position [Right Arm] 02 Sat by Pulse Oximetry 96 97 Oxygen Delivery Method 01/24/24 11:28 01/24/24 12:00 01/24/24 12:30 Temperature 98 F 97.7 F Temperature Source Oral Oral Pulse Rate 71 77 Pulse Rate [Left Radial] 74 Respiratory Rate 17 20 Blood Pressure 175/77 H 168/70 H Blood Pressure [Right Arm] 158/72 H Blood Pressure Mean Blood Pressure Mean [Right Arm] 100 Blood Pressure Source [Right Arm] Automatic Cuff Blood Pressure Position [Right Arm] 02 Sat by Pulse Oximetry 99 96 Oxygen Delivery Method Room Air Room Air Lab Data Lab results reviewed: Yes I reviewed the patient's lab results. Lab Results 01/24/24 07:42: SARS-CoV-2 (PCR) Not detected, Influenza A Untype (PCR) Not detected, Influenza Type B (PCR) Not detected 01/24/24 07:54: VBG pH 7.35, VBG pCO2 41.3, VBG pO2 32.9, VBG HCO3 22.5 L, VBG Total CO2 23.8, VBG O2 Saturation 63.8, VBG Base Excess -3.1 L, VBG Lactic Acid 2.5 H 01/24/24 07:56: Chlamy pneumoniae PCR Not detected, Adenovirus (PCR) Not detected, B. pertussis DNA (PCR) Not detected, Coronavirus OC43 (PCR) Not detected, Coronavirus HKU1 (PCR) Not detected, Coronavirus 229E (PCR) Not detected, SARS-CoV-2 (PCR) Not detected, Coronavirus NL63 (PCR) Not detected, Human Metapneumovir PCR Not detected, Influenza A (H1) PCR Not detected, Influ A (H1N1/09) PCR Not detected, Influenza A (H3) PCR Not detected, Influenza Type A (PCR) Not detected, Influenza Type B (PCR) Not detected, M. pneumoniae (PCR) Not detected, Parainfluenza 1 (PCR) Not detected, Parainfluenza 2 (PCR) Not detected, Parainfluenza 3 (PCR) Not detected, Parainfluenza 4 (PCR) Not detected, RSV (PCR) Not detected, Entero/Rhino (PCR) Not detected 01/24/24 08:01: WBC 14.8 H, RBC 3.89 L, Hgb 12.7, Hct 39.4, MCV 101.3 H, MCH 32.8 H, MCHC 32.3, RDW 13.8, Plt Count 290, MPV 10.6 H, Neut % (Auto) 61.3, Lymph % (Auto) 27.8, [place] % (Auto) 5.6, Eos % (Auto) 4.0, Baso % (Auto) 1.2, N eut # (Auto) 9.1 H, Lymph # (Auto) 4.1, [place] # (Auto) 0.8, Eos # (Auto) 0.6 H, Baso # (Auto) 0.2, PT 10.9, INR 0.97, APTT 27.8, D-Dimer 0.46, Sodium 143, Potassium 3.9, Chloride 112 H, Carbon Dioxide 23, Anion Gap 11.9, BUN 14, Creatinine 0.80, Estimated GFR 69, Est GFR ( Amer) 84, Glucose 238 H, Calcium 9.6, Total Bilirubin 0.4, AST 49 H, ALT 42, Alkaline Phosphatase 82, T roponin I 0.04 H, C-Reactive Protein 7.7 H, Total Protein 7.5, Albumin 3.9, G lobulin 3.6 H, Albumin/Globulin Ratio 1.1, Procalcitonin 0.089, TSH 2.47, Thyroxine (T4) 10.6 01/24/24 10:18: Troponin I 0.09 H, NT-Pro-B Natriuret Pep 265 01/24/24 10:52: Group A Strep Rapid Negative 01/24/24 08:01 01/24/24 08:01 Orders (Tests/Meds): ED MEDICATIONS Generic Name Dose Route Start Last Admin Trade Name Freq PRN Reason Stop Dose Admin Albuterol/Ipratropium 3 ml 01/24/24 13:44 01/24/24 14:00 Ipratropium/Albuterol 3 Ml [facility] 02/23/24 13:43 3 ml Q6HP PRN Administration Shortness Of Breath Ceftriaxone Sodium 2 gm/ 100 mls @ 200 mls/hr 01/24/24 13:45 01/24/24 14:32 Sodium Chloride IV 02/03/24 13:44 200 mls/hr Q24H GEETHA Administration Discontinued Medications Generic Name Dose Route Start Last Admin Trade Name Freq PRN Reason Stop Dose Admin Acetaminophen 1,000 mg 01/24/24 07:56 01/24/24 09:14 Acetaminophen 500mg Tab PO 01/24/24 07:57 1,000 mg ONCE ONE Administration Albuterol/Ipratropium 3 ml 01/24/24 07:56 01/24/24 09:15 Ipratropium/Albuterol 3 Ml Neb 01/24/24 07:57 Not Given ONCE ONE Dexamethasone 10 mg 01/24/24 08:56 01/24/24 09:13 Dexamethasone 4mg Tablet PO 01/24/24 08:57 10 mg ONCE ONE Administration Lactated Ringer's 500 mls @ 999 mls/hr 01/24/24 07:56 01/24/24 09:12 Lactated Ringer's 500ml IV 01/24/24 08:26 999 mls/hr .Q31M ONE Administration Ketorolac Tromethamine 15 mg 01/24/24 07:56 01/24/24 09:14 Ketorolac 30mg/Ml Vial IV 01/24/24 07:57 15 mg ONCE ONE Administration Tetracycl/Hydrocort/Nystatin/Diphen 15 ml 01/24/24 08:56 01/24/24 09:15 Magic Mouthwash 300ml Bottle PO 01/24/24 08:57 15 ml ONCE ONE Administration ORDERS Category Date Time Status Cardiology Consult [Consult to Cardiology] [CONS] Cons 01/24/24 11:27 Active Routine CXR 2 view (NOT portable) [XR chest 2V] Stat Exams 01/24/24 07:54 Taken Activated Partial Thrombo Time Stat Lab 01/24/24 08:01 Completed CRP [C-Reactive Protein] Stat Lab 01/24/24 08:01 Completed Complete Blood Count Auto Diff AMLAB Lab 01/25/24 06:00 Ordered Complete Blood Count Auto Diff Stat Lab 01/24/24 08:01 Completed Comprehensive Metabolic Panel AMLAB Lab 01/25/24 06:00 Ordered Comprehensive Metabolic Panel Stat Lab 01/24/24 08:01 Completed D-Dimer Stat Lab 01/24/24 08:01 Completed Full Resp Panel w/COVID ([facility]) Routine Lab 01/24/24 07:56 Completed Magnesium AMLAB Lab 01/25/24 06:00 Ordered Procalcitonin Stat Lab 01/24/24 08:01 Completed Prothrombin Time INR Stat Lab 01/24/24 08:01 Completed Rapid PCR Covid and Flu A/B Stat Lab 01/24/24 07:42 Completed Strep Scrn Group A (Rapid) Stat Lab 01/24/24 10:52 Completed T4 (Thyroxine) Stat Lab 01/24/24 08:01 Completed TSH [Thyroid Stimulating Hormone] Stat Lab 01/24/24 08:01 Completed Trop I [Troponin I] Stat Lab 01/24/24 08:01 Completed Troponin I Q3H Lab 01/24/24 10:18 Completed Troponin I Q3H Lab 01/24/24 14:00 Completed Blood Culture Stat Micro 01/24/24 09:13 Received Strep Screen Confirmation Stat Micro 01/24/24 10:52 Received VBG [Venous Blood Gas] Stat RT 01/24/24 07:54 Completed ECG Data Tracing #1: I reviewed this ECG and interpreted as documented below: Unable to accurately determine rhythm given motion artifact. Appears to be sinus rhythm with a ventricular rate of [address] changes concerning for ischemia right axis deviation noted. ECG initial impression date: 01/24/24 ECG initial impression time: 08:24 Tracing #2: I reviewed this ECG and interpreted as documented below: Normal sinus rhythm with sinus arrhythmia. Left axis deviation. Ventricular rate [address] changes concerning for ischemia. ECG initial impression date: 01/24/24 ECG initial impression time: 10:28 Medical Decision Narrative: In summary, this patient is a 79-year-old female presenting to the Emergency Department for evaluation of sore throat, cough, congestion, ear pressure, and shortness of breath. Differential diagnoses considered include but are not limited to viral syndrome, pneumonia, ACS, PE, pneumothorax. Ruling out the most morbid conditions drove assessment. It should be noted patient's history includes CAD status post CABG, type 2 diabetes, as well as history of asplenia which may or may not be at goal therapy. This complicates all aspects of care by increasing patient's risk for morbidity. On exam, the patient is very very anxious appearing with tachypnea, pursed lip breathing, and faint expiratory wheezing noted. She notes that she feels very short of air. Vitals are normal on cardiac telemetry including oxygen saturation and heart rate. Based on her constellation of symptoms, I feel she most likely has a viral syndrome, however given her significant shortness of breath and extensive comorbidities, will obtain broad workup to further evaluate. Workup included CBC, CMP, troponin BNP, D-dimer, VBG, lactic acid, viral swab, chest x-ray, EKG. She was given a small bolus of IV fluids as well as IV Toradol, oral Tylenol to assess for symptomatic improvement. I independently interpreted XR prior to the radiologist read and noted no acute focal consolidation. Please see their read for final interpretation. Labs were obtained that demonstrated mild leukocytosis, mildly elevated lactic acid, mildly elevated AST, mildly elevated troponin. Initial EKG with motion artifact given patient's hyperventilation, will repeat. Given her mildly elevated lactic acid and mild leukocytosis, blood cultures were sent. I doubt sepsis at this time given how well-appearing the patient is and the fact that she is been afebrile and nontachycardic in the ED, but her asplenia of course puts her at risk. On reassessment, patient had great improvement after administration of interventions above. She is no longer hypertensive or tachypneic and is resting comfortably. She remains afebrile. She does complain that her throat still hurts. She has no dysphagia, stridor, and is tolerating secretions well. No obvious swelling on exam. Will administer dexamethasone as well as Magic mouthwash to assess for symptomatic improvement of likely pharyngitis. Viral swab for COVID and flu came back negative, so full respiratory panel was sent. At 0855, patient was placed in ED observation status pending second troponin, repeat EKG, and reassessment to determine whether or not the patient would be appropriate for discharge versus admission. The patient was provided serial reevaluations and cardiac monitoring while awaiting ultimate disposition. Ultimately, second troponin came back more elevated at 0.09. Repeat EKG is reassuring. I called and had an interactive discussion with cardiology who is going to come and evaluate the patient. Given her elevated troponins in the setting of initial shortness of breath, I feel she would benefit from admission for monitoring. I had an interactive discussion with the hospitalist who admitted the patient in stable condition. ED observation status ended at 11:45 AM after 2 hours and 50 minutes in ED observation. Critical Care Critical Care Time Critical Care Time: No
[2024-01-24 07:58] LABS: Coronavirus 19, PCR Not Detected (NotDetected); Influenza A, PCR Not Detected (NotDetected); Influenza B, PCR Not Detected (NotDetected)
--- NOTE | 2024-01-24 08:02 | PC.NURSE ---
going to xray
[2024-01-24 08:09] LABS: Lactate Venous 2.5 mmol/L (0.4-2.0); VBG Base Excess -3.1 mmol/L (-2.4-2.3); VBG HCO3 22.5 mmol/L (23-30); VBG Oxygen Saturation 63.8 % (50-70); VBG PCO2 41.3 mmol/L (35-51); VBG PH 7.35 mmol/L (7.31-7.41); VBG PO2 32.9 mmol/L (28-40); VBG Total CO2 23.8 mmol/L (23-27)
[2024-01-24 08:10] LABS: Basophils # 0.2 K/mm3 (0-0.2); Basophils % 1.2 % (0.1-2.0); Eosinophils # 0.6 K/mm3 (0.0-0.4); Hematocrit 39.4 % (37.0-47.0); Hemoglobin 12.7 g/dL (12.2-16.2); Lymphocytes # 4.1 K/mm3 (0.7-4.5); Lymphocytes % 27.8 % (10-50); Mean Corpuscular HGB Conc 32.3 g/dL (31.8-35.4); Mean Corpuscular Hemoglobin 32.8 pg (27.0-31.2); Mean Corpuscular Volume 101.3 fl (81-99); Mean Platelet Volume 10.6 fl (7.4-10.4); Monocytes # 0.8 K/mm3 (0.1-1.0); Monocytes % 5.6 % (1.7-9.3); Neutrophils # 9.1 K/mm3 (1.8-7.8); Neutrophils % 61.3 % (37.0-80.0); Platelet Count 290 K/mm3 (142-424); Red Blood Count 3.89 M/mm3 (4.20-5.40); Red Cell Distribution Width 13.8 % (11.5-17.5); White Blood Count 14.8 K/mm3 (4.8-10.8)
[2024-01-24 08:20] LABS: Alanine Aminotransferase 42 U/L (12-78); Albumin Level 3.9 g/dl (3.5-5.0); Albumin/Globulin Ratio 1.1 (1.1-1.8); Alkaline Phosphatase 82 U/L (38-126); Anion Gap 11.9 mEq/L (5-15); Aspartate Amino Transferase 49 U/L (14-36); Bilirubin,Total 0.4 mg/dl (0.2-1.3); Blood Urea Nitrogen 14 mg/dl (7-17); Calcium 9.6 mg/dl (8.4-10.2); Carbon Dioxide 23 mmol/L (22.0-30.0); Chloride 112 mmol/L (98-107); Estimated Glomerular Filt Rate 69 ml/min (>60); GFR (African American) 84 ML/MIN (>60); Globulin 3.6 g/dL (1.3-3.2); Glucose 238 mg/dl (74-100); Potassium 3.9 mmoL/L (3.5-5.1); Sodium 143 mmol/L (136-145); Total Protein,Serum 7.5 g/dl (6.3-8.2)
--- NOTE | 2024-01-24 08:20 | ECG_ITS ---
APPROVED REPORT Exam: Resting ECG HR:77 bpm ECG Measurements Heart Rate 77 AXES QRSd 118 QRS 270 QT 424 T 51 QTc 455 Conclusion Artifact obsures baseline. Most likely normal sinus rhythm RIGHT AXIS DEVIATION [QRS AXIS > 100] S1-S2-S3 PATTERN, CONSISTENT WITH PULMONARY DISEASE, RVH, OR NORMAL VARIANT ANTEROSEPTAL MYOCARDIAL INFARCTION , OF INDETERMINATE AGE [40+ ms Q WAVE IN V1-V4] ABNORMAL ECG Electronically signed by : ALONZO CONWAY, 01/24/2024 16:23:12
[2024-01-24 08:21] LABS: Activated Partial Thrombo Time 27.8 seconds (22.8-30.6); INR 0.97 (0.9-1.1); Prothrombin Time 10.9 seconds (10.1-12.5)
[2024-01-24 08:31] LABS: Troponin I 0.04 ng/ml (0.00-0.034)
[2024-01-24 08:36] LABS: T4 (Thyroxine) 10.6 ug/dl (5.53-11.0)
[2024-01-24 08:41] LABS: D-Dimer 0.46 ug/mL (0.0-0.5)
[2024-01-24 08:50] LABS: Thyroid Stimulating Hormone 2.47 uIU/mL (0.465-4.68)
[2024-01-24 08:50] LABS: Adenovirus,PCR Not Detected (NotDetected); Bordetella Pertussis Not Detected (NotDetected); Chlamydophila Pneumoniae, PCR Not Detected (NotDetected); Coronavirus 19, PCR Not Detected (NotDetected); Coronavirus 229E Not Detected (NotDetected); Coronavirus NL63 Not Detected (NotDetected); Coronavirus OC43 Not Detected (NotDetected); Coronovirus HKU1,PCR Not Detected (NotDetected); Human Metapneumovirus Not Detected (NotDetected); Influenza A, PCR Not Detected (NotDetected); Influenza AH1, 2009 Not Detected (NotDetected); Influenza AH1, PCR Not Detected (NotDetected); Influenza AH3,PCR Not Detected (NotDetected); Influenza B, PCR Not Detected (NotDetected); Mycoplasma Pneumoniae, PCR Not Detected (NotDetected); Parainfluenza 1, PCR Not Detected (NotDetected); Parainfluenza 2, PCR Not Detected (NotDetected); Parainfluenza 3, PCR Not Detected (NotDetected); Parainfluenza 4, PCR Not Detected (NotDetected); Respiratory Syncytial Virus Not Detected (NotDetected); Rhinovirus/Enterovirus Not Detected (NotDetected)
--- NOTE | 2024-01-24 09:01 | PC.NURSE ---
unsuccessful stick x2, called lab for blood cultures at this time.
[2024-01-24 09:06] LABS: C-Reactive Protein 7.7 mg/L (0-4)
[2024-01-24] MEDS: RINGERS SOLUTION,LACTATED 500 ML 999 ML IV (09:12)
[2024-01-24] MEDS: DEXAMETHASONE 4MG TABLET 10 MG PO (09:13)
[2024-01-24] MEDS: KETOROLAC 30MG/ML VIAL 15 MG IV (09:14)
[2024-01-24] MEDS: ACETAMINOPHEN 500MG TAB 1000 MG PO (09:14)
[2024-01-24] MEDS: MAGIC MOUTHWASH 300ML BOTTLE 15 ML PO (09:15)
[2024-01-24 09:18] LABS: Procalcitonin 0.089 ng/mL (0.0-2.0)
--- NOTE | 2024-01-24 10:25 | ECG_ITS ---
APPROVED REPORT Exam: Resting ECG HR:73 bpm ECG Measurements Heart Rate 73 AXES TX 199 P 72 QRSd 105 QRS -82 QT 407 T 35 QTc 433 Conclusion SINUS RHYTHM WITH SINUS ARRHYTHMIA LEFT AXIS DEVIATION [QRS AXIS < -30] ANTEROSEPTAL MYOCARDIAL INFARCTION , PROBABLY OLD [40+ ms Q WAVE IN V1-V4] ABNORMAL ECG Electronically signed by : ALONZO CONWAY, 01/24/2024 16:21:54
[2024-01-24 10:50] LABS: Troponin I 0.09 ng/ml (0.00-0.034)
[2024-01-24 11:12] LABS: Strep Scrn Group A (Rapid) Negative (Negative)
--- NOTE | 2024-01-24 11:31 | P.HP_ITS ---
History of Present Illness *Admission Date: 01/24/24 *Reason for visit:: Shortness of breath or chest pressure *History of present illness: Ms. Pisano is an 79-year-old female with history of CAD status post CABG, stenting of grafts, asplenia, hypertension, hyperlipidemia, diabetes. She r eports she woke this morning suddenly with shortness of breath around 4 AM. Having chest pressure and discomfort. Radiating into her neck and ears. On room air on arrival to the ER. Had an episode of coughing, coughed up a large amount of sputum which she said was bubbly but clear. Denies any fever, nausea, vomiting, diarrhea. Has had some chills but no sharron fever. [place] this [place] weekend with her family. They stopped twice on [address]. Has had sick contacts. Granddaughter has URI. In the ER, workup concerning for elevated white count of 14.8. Per chart review she has elevated white count chronically likely due to her asplenia. Troponin elevated from 0.0 4.09. Kidney function and electrolytes normal. Medicine consulted for admission for further management of her chest discomfort, elevated troponin. Cardiology consulted to assist with care. On arrival to the floor, patient on room air. Reports some swelling in her legs. Denies any syncope, confusion. Has been calm with her med Asians. Not on a sharron blood thinner but is on aspirin for his daily. No history of blood clots. Daughter with her at bedside. [facility] Disclaimer: The information contained in this section may have been updated after the patient was seen, as this information can be updated by other users. Medical History PAD (peripheral artery disease) Diabetes Hypertension Elevated troponin Diastolic dysfunction Aortic regurgitation Pulmonary hypertension Carotid artery stenosis Superior mesenteric artery stenosis CAD (coronary artery disease) HLD (hyperlipidemia) HHD (hypertensive heart disease) Family history of coronary artery disease Surgical History H/O coronary artery bypass surgery Social History Smoking Status: Unknown if ever smoked second hand exposure: No alcohol intake: never substance use type: denies use current occupational status: retired Travel in the last 8 weeks: Inside the [place] household members: none housing: house current occupational exposures/hazards: No caffeine: Yes Review of Systems Review of Systems Review of systems (narrative): 14 point review of systems performed, pertinent positives and negatives as per [facility] Meds Home Medications and Allergies Home Medications Medication Instructions Recorded Confirmed Type aspirin 81 mg tablet,delayed 81 mg PO DAILY 02/22/22 01/24/24 History release fenofibrate nanocrystallized 145 145 mg PO DAILY 02/22/22 01/24/24 History mg tablet pantoprazole 40 mg tablet,delayed 40 mg PO DAILY 02/22/22 01/24/24 History release atorvastatin 80 mg tablet 80 mg PO DAILY 01/24/24 01/24/24 History carvedilol 25 mg tablet 25 mg PO BID 01/24/24 01/24/24 History clopidogrel 75 mg tablet 75 mg PO DAILY 01/24/24 01/24/24 History furosemide 20 mg tablet 20 mg PO HS 01/24/24 01/24/24 History furosemide 20 mg tablet 40 mg PO DAILY 01/24/24 01/24/24 History insulin glargine 100 30 unit SQ DAILY 01/24/24 01/24/24 History unit-lixisenatide 33 mcg/mL subcutaneous pen (Soliqua 100/33) levothyroxine 75 mcg tablet 75 mcg PO DAILY 01/24/24 01/24/24 History niacin 500 mg tablet 500 mg PO BID 01/24/24 01/24/24 History sitagliptin phos 50 mg-metformin 1 tab PO QPMWITHMEAL 01/24/24 01/24/24 History ER 1,000 mg tablet,extend rel 24h mp (Janumet XR) New Prescriptions to Start Prescriptions: Allergies Allergy/AdvReac Type Severity Reaction Status Date / Time Iodinated Contrast Media Allergy Unknown SHORTNESS Verified 08/25/22 10:06 [IODINATED CONTRAST MEDIA - OF BREATH ORAL AND] Sulfa (Sulfonamide Allergy Unknown I-HIVES Verified 08/25/22 10:06 Antibiotics) [SULFA (SULFONAMIDE ANTIBIOTICS)] sulfamethoxazole Allergy Unknown I-HIVES Verified 08/25/22 10:06 [From BACTRIM] trimethoprim [From BACTRIM] Allergy Unknown I-HIVES Verified 08/25/22 10:06 Exam Data for Last 24 hours Vital signs and Labs for Last 24 Hours: Temp Pulse Resp BP Pulse Ox O2 Del Method 97.7 F 69 18 166/67 H 97 Room Air 01/24/24 08:01 01/24/24 11:01 01/24/24 07:35 01/24/24 11:01 01/24/24 11:01 01/24/24 07:35 Laboratory Results - last 24 hr 01/24/24 07:42: SARS-CoV-2 (PCR) Not detected, Influenza A Untype (PCR) Not det ected, Influenza Type B (PCR) Not detected 01/24/24 07:54: VBG pH 7.35, VBG pCO2 41.3, VBG pO2 32.9, VBG HCO3 22.5 L, VBG Total CO2 23.8, VBG O2 Saturation 63.8, VBG Base Excess -3.1 L, VBG Lactic Acid 2.5 H 01/24/24 08:01: WBC 14.8 H, RBC 3.89 L, Hgb 12.7, Hct 39.4, MCV 101.3 H, MCH 32.8 H, MCHC 32.3, RDW 13.8, Plt Count 290, MPV 10.6 H, Neut % (Auto) 61.3, Lymph % (Auto) 27.8, [place]son % (Auto) 5.6, Eos % (Auto) 4.0, Baso % (Auto) 1.2, Neut # (Auto) 9.1 H, Lymph # (Auto) 4.1, [place]son # (Auto) 0.8, Eos # (Auto) 0.6 H, Baso # (Auto) 0.2, PT 10.9, INR 0.97, APTT 27.8, D-Dimer 0.46, Sodium 143, Potassium 3.9, Chloride 112 H, Carbon Dioxide 23, Anion Gap 11.9, BUN 14, Creatinine 0.80, Estimated GFR 69, Est GFR ( Amer) 84, Glucose 238 H, Calcium 9.6, Total Bilirubin 0.4, AST 49 H, ALT 42, Alkaline Phosphatase 82, Troponin I 0.04 H, C-Reactive Protein 7.7 H, Total Protein 7.5, Albumin 3.9, Globulin 3.6 H, Albumin/Globulin Ratio 1.1, Procalcitonin 0.089, TSH 2.47, Thyroxine (T4) 10.6 01/24/24 10:18: Troponin I 0.09 H 01/24/24 10:52: Group A Strep Rapid Negative I & O for Last 24 hours: Intake & Output 01/21/24 01/22/24 01/23/24 01/24/24 23:59 23:59 23:59 23:59 Weight 73.028 kg Constitutional Constitutional: no acute distress, average body habitus and cooperative *Routine HEENT Exam Head: Present normocephalic Eye: Present EOMI and PERRL ENT: Present mucous membranes moist *Routine Neck Exam Neck: Present supple; Absent lymphadenopathy *Routine Respiratory Exam Respiratory: Present prolonged expiratory phase and normal respiratory effort; Absent rhonchi, wheezes or crackles *Routine Cardiovascular Exam Cardiovascular: Present RRR *Routine Abdominal Exam Abdominal: Present soft and normoactive bowel sounds; Absent tenderness *Routine Rectal Exam Rectal:: deferred *Routine Genitalia Exam Genitalia:: deferred *Routine Extremities Exam Extremities: Present edema (2+ in lower extremities bilaterally); Absent cyan osis or clubbing *Routine Skin Exam Skin: Present warm; Absent rash *Routine Neurological Exam Neurological: Present alert, oriented X3 and moving all extremities; Absent altered mental status Assessment and Plan *Assessment and plan (1) NSTEMI (non-ST elevated myocardial infarction): Status: Acute Category: Medical Code(s): I21.4 - Non-ST elevation (NSTEMI) myocardial infarction (2) HHD (hypertensive heart disease): Status: Chronic Qualifiers: Heart failure presence: without heart failure Qualified Code(s): I11.9 - Hypertensive heart disease without heart failure Category: Medical Code(s): I11.9 - Hypertensive heart disease without heart failure (3) HLD (hyperlipidemia): Status: Chronic Qualifiers: Hyperlipidemia type: mixed hyperlipidemia Qualified Code(s): E78.2 - Mixed hyperlipidemia Category: Medical Code(s): E78.5 - Hyperlipidemia, unspecified (4) CAD (coronary artery disease): Status: Chronic Qualifiers: Coronary Disease-Associated Artery/Lesion type: [place] artery [place] vs. transplanted heart: [place] heart Associated angina: with other forms of angina Qualified Code(s): I25.118 - Atherosclerotic heart disease of [place] coronary artery with other forms of angina pectoris Category: Medical Code(s): I25.10 - Atherosclerotic heart disease of [place] coronary artery without angina pectoris (5) Diabetes: Status: Chronic Qualifiers: Diabetes mellitus type: type 2 Diabetes mellitus intermediate frame tender insulin use: without intermediate frame tender use Diabetes mellitus complication status: without complication Qualified Code(s): E11.9 - Type 2 diabetes mellitus without complications Category: Medical Code(s): E11.9 - Type 2 diabetes mellitus without complications (6) PAD (peripheral artery disease): Status: Chronic Category: Medical Code(s): I73.9 - Peripheral vascular disease, unspecified (7) Pulmonary hypertension: Status: Chronic Category: Medical Code(s): I27.20 - Pulmonary hypertension, unspecified (8) Asplenia: Status: Chronic Category: Medical Code(s): Q89.01 - Asplenia (congenital) (9) Hypothyroid: Status: Chronic Qualifiers: Hypothyroidism type: acquired Qualified Code(s): E03.9 - Hypothyroidism, unspecified Category: Medical Code(s): E03.9 - Hypothyroidism, unspecified Plan 79-year-old female who presents with shortness of breath. Concern for elevation in troponin. Differential includes CHF exacerbation, respiratory infection, PE. Discussed case with ER physician, request admission due to elevating troponin and risk factors. I agreed to admit for further management. Cardiology consulted. Will diurese x 1. Low threshold to obtain CT PE given patient's recent travel and sudden onset of dyspnea. Echo obtained, read pending. Problems addressed as follows: NSTEMI CHF exacerbation Pulmonary hypertension -Suspect type II NSTEMI from viral syndrome however cannot rule out CHF exacerbation or PE. Echo obtained, formal read showing elevated RVSP. Will initiate diuresis. -Given recent travel and elevated RVSP along with elevated troponin, will obtain CT PE. Initiated empirically on therapeutic Lovenox 1 mg/kg twice daily pending formal imaging. -DuoNebs every 6 hours as needed. -Respiratory panel pending -Patient is asplenic, Continue ceftriaxone 2 g every 24 hours due to asplenia and possible respiratory infection. Low threshold to de-escalate pending culture results. White cell count elevated at 14.8, per chart review this appears to be about her baseline. -Repeat CBC, CMP, magnesium ordered for the morning. -BNP normal at 260. CAD PAD - Continue aspirin 81 mg daily and Plavix 75 mg daily. Hypertension: Resume carvedilol 25 mg twice daily Hyperlipidemia: Continue Lipitor 80 mg daily Hypothyroid: Continue levothyroxine 75 mcg daily Diabetes: A1c pending. -Resume Lantus at 25 units nightly. Continue sliding scale insulin with fingersticks ACHS. Full code TLOV Cardiac diet Daughter at bedside is her surrogate
--- NOTE | 2024-01-24 11:32 | PC.NURSE ---
called house for admission to 2nd floor at this time.
--- NOTE | 2024-01-24 11:32 | PC.NURSE ---
CArdiology office aware of consult spoke with Abi in office
[2024-01-24 12:10] LABS: Reflex Lactic Add Lactic Reflex
--- NOTE | 2024-01-24 12:37 | CA_ITS ---
APPROVED REPORT EXAM: Comprehensive 2D, Doppler, and color-flow Echocardiogram Pipeline Maintenance Supervisor: Selena Dukes, RCS, RVS Ht: 5 ft 3 in Wt: 161lbs BSA: 1.76 BP: 166/67 mmHg Indications: SOA, Palpitations, CAD-CABG x 20 years ago, PHTN, DM, HTN 2D Dimensions Left Atrium 4.31 cm F: 2.7 - 3.8 LA Volume 71.20 mL LA Volume Index 40.742371 mL/m2 (M/F) 16-34 EF AP4 61.40 % GL Strain -18.4 % M-Mode Dimensions RVDd 3.15 cm (0.9-2.6) LA Diam 4.31 cm (1.9-4.0) LVDd 5.17 cm (3.5-5.7) LVDs 3.12 cm (3.5-5.7) IVSd 0.84 cm (0.6-1.1) PWd 0.95 cm (0.6-1.1) EF (Teich) 69.90% EPSs 1.03 cm FS 39.70% EDV (Teich) 127.80 mL TAPSE 2.22 (<1.7) ESV (Teich) 38.50 mL LV Diastology E Decel Time 187 (160-240 msec) E/A Ratio 0.94 MED A' 11.80 cm/s LAT A' 12.60 cm/s Aortic Valve SHOSHANA Index 1.00 cm2/m2 AoV Peak Martin. 144.0 (50-130 cm/s) AI PHT 406.00 ms AO Peak GR. 8.30 mmHg AO Mean GR. 4.60 (<5 mmHg) AO VTI 33.4 (18-25 cm) SHOSHANA (VTI) 1.81 (2.5-4.5 cm2) Mitral Valve MV A Velocity 128.0 (40-130 cm/s) E/A Ratio 0.94 Pulmonary Valve PV Peak Velocity 95.0 (50-150 cm/s) Tricuspid Valve TR P. Velocity 426.00 cm/s RAP Estimate 10.00 mmHg RVSP 82.70 mmHg Left Ventricle The left ventricle is normal size. The left ventricular systolic function is normal. The left ventricular ejection fraction is within the normal range. There is increased LV wall thickness. There is normal LV segmental wall motion. The left ventricular diastolic function is normal. LVEF is 55%. Right Ventricle Right ventricle is mildly dilated. The right ventricular systolic function is normal. Atria Left atrium is mildly dilated. The right atrium is mildly dilated. There is no Doppler evidence of interatrial shunt. Aortic Valve The aortic valve is mildly thickened. There is no aortic valvular stenosis. Moderate aortic regurgitation. Mitral Valve The mitral valve is mildly thickened. No evidence of mitral valve stenosis. Mild mitral regurgitation. Tricuspid Valve The tricuspid valve leaflets are thin and pliable. Moderate tricuspid regurgitation. RVSP is 35-40 mmHg. Pulmonic Valve The pulmonary valve is normal in structure. Trace pulmonic regurgitation. Great Vessels The aortic root is normal in size. The ascending aorta is normal in size. IVC is normal in size and collapses >50% with inspiration. Pericardium There is no pericardial effusion. Other Information Study Quality: Adequate Conclusion Normal LV systolic function. Mild RV dilation with normal RV function. Biatrial dilation. Moderate AI, moderate TR. Mild MR. RVSP 45-40 mmHg. Electronically signed by : Jennifer Garcia MD 01/24/2024 23:07:36
--- NOTE | 2024-01-24 12:38 | EXP.CARD.CON ---
History of Present Illness History of Present Illness Consult date: 01/24/24 Requesting physician: Anny Garrett Consult reason: shortness of breath Chief complaint: SOB, runny nose, sore throat, ear pain History of present illness: This is an 79-year-old white female who presented to the emergency department with complaints of shortness of breath, runny nose, sore throat and ear pain. She has a past medical history of coronary artery disease status post CABG and coronary stenting, asplenia, hypertension, hyperlipidemia, PAD and diabetes. The patient states that she woke up suddenly around 4 AM gasping for air. She states that she was profoundly short of breath which was a new symptom for her. She states that she also had pressure in her chest that was radiating up her neck and into her bilateral ears. She states that her chest just felt very tight and she was very hungry for air and could not get her breath. She states at some point she felt like she was gasping for air. She states that her throat was very sore when she woke up this morning and she coughed which produced a large amount of sputum which was clear and bubbly. The patient states that she felt like she might of been having some chills but did not have a fever. She states that she was very anxious and this continued to worsen. She denies any nausea, vomiting or diarrhea. She states around 7 AM her shortness of breath continued to progress so she called her granddaughter and then decided to come into the emergency department. The patient was treated with fluids, Tylenol and Toradol and states that her symptoms did improve. She states her shortness of breath is better but she still feels like she has a very sore throat. Her troponin initially was elevated at 0.04 and her second troponin elevated to 0.09. The patient will be admitted to the hospital for observation. She does have an abnormal EKG. As mentioned above the patient does have a past medical history of coronary artery disease and is status post CABG in 1996. Repeat cardiac catheterization in 2019 showed a patent RAM to the LAD, patent MONICA to the right coronary artery and an occluded saphenous vein graft to OM 3. She had stenting to her [place] circumflex artery at that time and remains on aspirin and Plavix. Of note the patient just returned from vacation in [facility] on Tuesday. [facility] Disclaimer: The information contained in this section may have been updated after the patient was seen, as this information can be updated by other users. Medical History PAD (peripheral artery disease) Diabetes Hypertension Elevated troponin Diastolic dysfunction Aortic regurgitation Pulmonary hypertension Carotid artery stenosis Superior mesenteric artery stenosis CAD (coronary artery disease) HLD (hyperlipidemia) HHD (hypertensive heart disease) Family history of coronary artery disease Surgical History H/O coronary artery bypass surgery Social History Smoking Status: Unknown if ever smoked second hand exposure: No alcohol intake: never substance use type: denies use current occupational status: retired Travel in the last 8 weeks: Inside the [place] household members: none housing: house current occupational exposures/hazards: No caffeine: Yes Review of Systems Review of Systems Review of systems:: pertinent systems reviewed and negative unless documented below Constitutional Constitutional: Reports system reviewed and no additional complaints, except as documented, Reports chills and Denies fever(s) Eyes Eyes: Reports system reviewed and no additional complaints, except as documented ENT Ears, Nose, Mouth, and Throat: Reports system reviewed and no additional complaints, except as documented, Reports otalgia and Reports sore throat Comments: Runny nose *Cardiovascular Cardiovascular: Reports system reviewed and no additional complaints, except as documented, Reports chest pain, Reports chest pain at rest, Reports chest pain with activity, Reports dyspnea, Reports dyspnea on exertion and Reports radiating jaw, neck or arm pain *Respiratory Respiratory: Reports system reviewed and no additional complaints, except as documented, Reports chest congestion, Reports cough, Reports dyspnea, Reports dyspnea on exertion and Reports excessive phlegm production *Gastrointestinal Gastrointestinal: Reports system reviewed and no additional complaints, except as documented *Musculoskeletal Musculoskeletal: Reports system reviewed and no additional complaints, except as documented Integumentary/Breasts Skin/Breast: Reports system reviewed and no additional complaints, except as documented *Neurologic Neurologic: Reports system reviewed and no additional complaints, except as documented Psychiatric Psychiatric: Reports system reviewed and no additional complaints, except as documented Endocrine Endocrine: Reports system reviewed and no additional complaints, except as documented Hematologic/Lymphatic Hematologic/Lymphatic: Reports system reviewed and no additional complaints, except as documented Allergic/Immunologic Allergic/Immunologic: Reports system reviewed and no additional complaints, except as documented Exam Data for Last 24 hours Vital signs and Labs for Last 24 Hours: Temp Pulse Resp BP Pulse Ox O2 Del Method 97.7 F 77 20 168/70 H 99 Room Air 01/24/24 12:30 01/24/24 12:30 01/24/24 12:30 01/24/24 12:30 01/24/24 11:28 01/24/24 12:30 Laboratory Results - last 24 hr 01/24/24 07:42: SARS-CoV-2 (PCR) Not detected, Influenza A Untype (PCR) Not detected, Influenza Type B (PCR) Not detected 01/24/24 07:54: VBG pH 7.35, VBG pCO2 41.3, VBG pO2 32.9, VBG HCO3 22.5 L, VBG Total CO2 23.8, VBG O2 Saturation 63.8, VBG Base Excess -3.1 L, VBG Lactic Acid 2.5 H 01/24/24 08:01: WBC 14.8 H, RBC 3.89 L, Hgb 12.7, Hct 39.4, MCV 101.3 H, MCH 32.8 H, MCHC 32.3, RDW 13.8, Plt Count 290, MPV 10.6 H, Neut % (Auto) 61.3, Lymph % (Auto) 27.8, [place] % (Auto) 5.6, Eos % (Auto) 4.0, Baso % (Auto) 1.2, Neut # (Auto) 9.1 H, Lymph # (Auto) 4.1, [place] # (Auto) 0.8, Eos # (Auto) 0.6 H, Baso # (Auto) 0.2, PT 10.9, INR 0.97, APTT 27.8, D-Dimer 0.46, Sodium 143, Potassium 3.9, Chloride 112 H, Carbon Dioxide 23, Anion Gap 11.9, BUN 14, Creatinine 0.80, Estimated GFR 69, Est GFR ( Amer) 84, Glucose 238 H, Calcium 9.6, Total Bilirubin 0.4, AST 49 H, ALT 42, Alkaline Phosphatase 82, Troponin I 0.04 H, C-Reactive Protein 7.7 H, Total Protein 7.5, Albumin 3.9, Globulin 3.6 H, Albumin/Globulin Ratio 1.1, Procalcitonin 0.089, TSH 2.47, Thyroxine (T4) 10.6 01/24/24 10:18: Troponin I 0.09 H 01/24/24 10:52: Group A Strep Rapid Negative I & O for Last 24 hours: Intake & Output 01/21/24 01/22/24 01/23/24 01/24/24 23:59 23:59 23:59 23:59 Weight 161 lb Narrative: EKG #1 shows sinus rhythm with a rate of 77 bpm, right axis deviation and old anteroseptal NM pattern. EKG #2 show shortness rhythm with rate of 73 bpm and old anteroseptal NM pattern and left axis deviation. Constitutional Constitutional: no acute distress and average body habitus *Routine HEENT Exam Head: Present normocephalic and atraumatic ENT: Present mucous membranes moist *Routine Neck Exam Neck: Present supple, full ROM and normal carotid upstroke; Absent JVD, carotid bruit or lymphadenopathy *Routine Respiratory Exam Respiratory: Present wheezes, normal respiratory effort, able to speak in complete sentences and symmetric chest movement *Routine Cardiovascular Exam Cardiovascular: Present RRR, Normal S1 and Normal S2; Absent murmur or gallop *Routine Abdominal Exam Abdominal: Present soft and normoactive bowel sounds; Absent tenderness, distended or organomegaly *Routine Extremities Exam Extremities: Present edema (trace BLE edema), full ROM, pulses intact and normal capillary refill; Absent cyanosis or clubbing *Routine Skin Exam Skin: Present intact and warm; Absent erythema *Routine Neurological Exam Neurological: Present alert, oriented X3 and CN II-XII intact; Absent sensory deficit or motor deficit Routine Psychiatric Exam Psychiatric: Present normal affect Meds Home Medications and Allergies Home Medications ?Medication ?Instructions ?Recorded ?Confirmed ?Type aspirin 81 mg tablet,delayed 81 mg PO DAILY 02/22/22 01/24/24 History release fenofibrate nanocrystallized 145 145 mg PO DAILY 02/22/22 01/24/24 History mg tablet pantoprazole 40 mg tablet,delayed 40 mg PO DAILY 02/22/22 01/24/24 History release atorvastatin 80 mg tablet 80 mg PO DAILY 01/24/24 01/24/24 History carvedilol 25 mg tablet 25 mg PO BID 01/24/24 01/24/24 History clopidogrel 75 mg tablet 75 mg PO DAILY 01/24/24 01/24/24 History furosemide 20 mg tablet 20 mg PO HS 01/24/24 01/24/24 History furosemide 20 mg tablet 40 mg PO DAILY 01/24/24 01/24/24 History insulin glargine 100 30 unit SQ DAILY 01/24/24 01/24/24 History unit-lixisenatide 33 mcg/mL subcutaneous pen (Soliqua 100/33) levothyroxine 75 mcg tablet 75 mcg PO DAILY 01/24/24 01/24/24 History niacin 500 mg tablet 500 mg PO BID 01/24/24 01/24/24 History sitagliptin phos 50 mg-metformin 1 tab PO QPMWITHMEAL 01/24/24 01/24/24 History ER 1,000 mg tablet,extend rel 24h mp (Janumet XR) New Prescriptions to Start Prescriptions: Allergies Allergy/AdvReac Type Severity Reaction Status Date / Time Iodinated Contrast Media Allergy Unknown SHORTNESS Verified 08/25/22 10:06 [IODINATED CONTRAST MEDIA - OF BREATH ORAL AND] Sulfa (Sulfonamide Allergy Unknown I-HIVES Verified 08/25/22 10:06 Antibiotics) [SULFA (SULFONAMIDE ANTIBIOTICS)] sulfamethoxazole Allergy Unknown I-HIVES Verified 08/25/22 10:06 [From BACTRIM] trimethoprim [From BACTRIM] Allergy Unknown I-HIVES Verified 08/25/22 10:06 Assessment and Plan *Assessment and plan (1) Elevated troponin: Status: Acute Category: Medical Code(s): R79.89 - Other specified abnormal findings of blood chemistry (2) Viral URI with cough: Status: Acute Category: Medical Code(s): J06.9 - Acute upper respiratory infection, unspecified (3) CAD (coronary artery disease): Status: Chronic Qualifiers: Associated angina: with other forms of angina Coronary Disease-Associated Artery/Lesion type: [place] artery [place] vs. transplanted heart: [place] heart Qualified Code(s): I25.118 - Atherosclerotic heart disease of [place] coronary artery with other forms of angina pectoris Category: Medical Code(s): I25.10 - Atherosclerotic heart disease of [place] coronary artery without angina pectoris (4) HLD (hyperlipidemia): Status: Chronic Qualifiers: Hyperlipidemia type: mixed hyperlipidemia Qualified Code(s): E78.2 - Mixed hyperlipidemia Category: Medical Code(s): E78.5 - Hyperlipidemia, unspecified (5) HHD (hypertensive heart disease): Status: Chronic Qualifiers: Heart failure presence: without heart failure Qualified Code(s): I11.9 - Hypertensive heart disease without heart failure Category: Medical Code(s): I11.9 - Hypertensive heart disease without heart failure (6) Hypertension: Status: Acute Qualifiers: Hypertension type: primary hypertension Qualified Code(s): I10 - Essential (primary) hypertension Category: Medical Code(s): I10 - Essential (primary) hypertension (7) Diabetes: Status: Chronic Qualifiers: Diabetes mellitus complication status: without complication Diabetes mellitus detention insulin use: without 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 use Diabetes mellitus type: type 2 Qualified Code(s): E11.9 - Type 2 diabetes mellitus without complications Category: Medical Code(s): E11.9 - Type 2 diabetes mellitus without complications (8) PAD (peripheral artery disease): Status: Chronic Category: Medical Code(s): I73.9 - Peripheral vascular disease, unspecified (9) Carotid artery stenosis: Status: Chronic Qualifiers: Laterality: bilateral Qualified Code(s): I65.23 - Occlusion and stenosis of bilateral carotid arteries Category: Medical Code(s): I65.29 - Occlusion and stenosis of unspecified carotid artery (10) Pulmonary hypertension: Status: Chronic Category: Medical Code(s): I27.20 - Pulmonary hypertension, unspecified (11) Aortic regurgitation: Status: Chronic Qualifiers: Cardiac valve disease etiology: etiology unspecified Qualified Code(s): I35.1 - Nonrheumatic aortic (valve) insufficiency Category: Medical Code(s): I35.1 - Nonrheumatic aortic (valve) insufficiency (12) Diastolic dysfunction: Status: Chronic Category: Medical Code(s): I51.89 - Other ill-defined heart diseases Plan Plan: 1. The patient was admitted to the hospital secondary to an elevated troponin. This is most likely a type II non-STEMI from a viral syndrome. However, we will admit the patient overnight for further observation due to her elevated troponin and history of coronary artery disease. 2. Will obtain an echocardiogram to evaluate her LV function and moderate AI. As long as her EF remains preserved then no plans for left cardiac catheterization at this time. 3. However, she would benefit from an ischemic evaluation once she has recovered from her viral illness on an outpatient basis unless her echocardiogram is changed. 4. Will obtain a BNP to see if the patient would benefit from gentle IV diuresis. 5. Coronary artery disease is present. Continue aspirin 81 mg daily and Plavix 75 mg daily. 6. Her blood pressure is elevated. Will get her restarted on her carvedilol. 7. Her LDL goal is less than 55. She is on a statin. Will get a lipid panel in the morning. 8. Further recommendations will be made pending the patient's response to treatment and the results of her echocardiogram today. Thank you for the opportunity to participate in the care of this patient. All recommendations and orders are per Dr. Garcia.
[2024-01-24 12:57] LABS: Lactic Acid Follow Up (RFLX 1) 2.3 mmol/L (0.7-2.1)
[2024-01-24 12:58] LABS: NT Pro Brain Natriuretic Pep. 265 pg/mL (0-450)
--- NOTE | 2024-01-24 13:06 | HMH.PHAINT1 ---
Pharmacy Intervention Comments: MEDICATION RECONCILIATION COMPLETED ON PATIENT USING EXTERNAL FILL HISTORY FROM PHARMACY AND SAMINA REPORT. -MARGARITO SHAH, OTONIELD
[2024-01-24] MEDS: IPRATROPIUM/ALBUTEROL 3 ML NEB IH (14:00)
[2024-01-24] MEDS: CEFTRIAXONE SODIUM 2 GM in 0.9 % SODIUM CHLORIDE 100 ML IV (14:32)
[2024-01-24 14:37] LABS: Troponin I 0.07 ng/ml (0.00-0.034)
[2024-01-24 14:43] LABS: Reflex Lactic (2 hrs) Add Lactic Reflex
[2024-01-24 15:31] LABS: Lactic Acid Follow up (RFLX 2) 2.6 mmol/L (0.7-2.1)
--- NOTE | 2024-01-24 19:33 | HMH.ITSTN ---
talked to RN and advised her of the pre medication protocols for contrast allergy. She will call back to update
--- NOTE | 2024-01-24 19:33 | PC.NURSE ---
PATIENT ALLERGIC TO CONTRAST DYE. VONDA LUDWIG NP NOTIFIED. PATIENT WAS BROUGHT BACK FROM RADIOLOGY PENDING PREMEDICATION.
[2024-01-24] MEDS: BUMETANIDE 1MG/4ML VIAL 1 MG IV (19:47)
[2024-01-24] MEDS: ENOXAPARIN 100MG/ML SYRINGE 75 MG SQ (19:48)
[2024-01-24] MEDS: INSULIN GLARGINE 100 UNITS/ML 3ML FLEXPEN 25 UNIT SQ (20:07)
[2024-01-24] MEDS: humaLOG 100 UNITS/ML 10ML VIAL (SSI) SQ (20:08)
[2024-01-24] MEDS: CARVEDILOL 25MG TABLET 25 MG PO (20:08)
[2024-01-24 20:21] LABS: POC Glucose,Bedside 313 (70-110)
[2024-01-25] VITALS: BP 115/61; PULSE 75; PULSE 79; RESP 18; TEMP 36.7; O2SAT 100
[2024-01-25 04:00] VITALS: BP 131/68; PULSE 78; PULSE 79; RESP 17; TEMP 36.6; O2SAT 96; BMI 29.1
[2024-01-25 06:25] LABS: POC Glucose,Bedside 185 (70-110)
[2024-01-25 07:48] LABS: Basophils # 0.1 K/mm3 (0-0.2); Basophils % 0.3 % (0.1-2.0); Eosinophils % 0.1 % (0.1-12.0); Hematocrit 31.3 % (37.0-47.0); Hemoglobin 11.7 g/dL (12.2-16.2); Lymphocytes # 4.7 K/mm3 (0.7-4.5); Lymphocytes % 19.9 % (10-50); Mean Corpuscular HGB Conc 37.5 g/dL (31.8-35.4); Mean Corpuscular Hemoglobin 38.1 pg (27.0-31.2); Mean Corpuscular Volume 101.6 fl (81-99); Mean Platelet Volume 10.6 fl (7.4-10.4); Monocytes % 4.1 % (1.7-9.3); Neutrophils # 17.7 K/mm3 (1.8-7.8); Neutrophils % 75.6 % (37.0-80.0); Platelet Count 270 K/mm3 (142-424); Red Blood Count 3.08 M/mm3 (4.20-5.40); Red Cell Distribution Width 13.7 % (11.5-17.5); White Blood Count 23.5 K/mm3 (4.8-10.8)
[2024-01-25 07:51] LABS: Alanine Aminotransferase 42 U/L (12-78); Albumin Level 3.9 g/dl (3.5-5.0); Alkaline Phosphatase 73 U/L (38-126); Anion Gap 12.8 mEq/L (5-15); Aspartate Amino Transferase 44 U/L (14-36); Bilirubin,Total 0.4 mg/dl (0.2-1.3); Blood Urea Nitrogen 22 mg/dl (7-17); Calcium 9.6 mg/dl (8.4-10.2); Carbon Dioxide 24 mmol/L (22.0-30.0); Chloride 108 mmol/L (98-107); Chol/HDL Ratio 5.4 (1-3.5); Cholesterol 174 mg/dl (140-200); Creatinine Clearance Estimated 52 mL/min (50-200); Estimated Glomerular Filt Rate 69 ml/min (>60); GFR (African American) 84 ML/MIN (>60); Globulin 3.8 g/dL (1.3-3.2); Glucose 191 mg/dl (74-100); HDL Cholesterol 32 mg/dl (40-60); Magnesium 1.4 mg/dl (1.6-2.3); Potassium 3.8 mmoL/L (3.5-5.1); Sodium 141 mmol/L (136-145); Total Protein,Serum 7.7 g/dl (6.3-8.2); Triglycerides 336 mg/dl (30-150); VLDL Cholesterol 67 mg/dL (0-40)
[2024-01-25 08:00] VITALS: BP 139/72; PULSE 70; PULSE 76; RESP 21; TEMP 36.7; O2SAT 94
[2024-01-25 08:02] LABS: Direct LDL Cholesterol 87.36 mg/dL (100-129)
[2024-01-25] MEDS: CARVEDILOL 25MG TABLET 25 MG PO (08:21)
[2024-01-25] MEDS: ATORVASTATIN 40MG TABLET 80 MG PO (08:22)
[2024-01-25] MEDS: LEVOTHYROXINE 75MCG (0.075MG) TAB 75 MCG PO (08:22)
[2024-01-25] MEDS: CLOPIDOGREL 75MG TAB 75 MG PO (08:22)
[2024-01-25] MEDS: ASPIRIN EC 81MG TABLET 81 MG PO (08:22)
[2024-01-25] MEDS: ENOXAPARIN 80MG/0.8ML SYRINGE 75 MG SQ (08:22)
[2024-01-25] MEDS: PANTOPRAZOLE 40MG TABLET 40 MG PO (08:22)
--- NOTE | 2024-01-25 08:22 | EXP.DC.SUM ---
General Admission date:: 01/24/24 Discharge date: 01/25/24 HPI HPI HPI: Ms. Pisano is an 79-year-old female with history of CAD status post CABG, stenting of grafts, asplenia, hypertension, hyperlipidemia, diabetes. She reports she woke this morning suddenly with shortness of breath around 4 AM. Having chest pressure and discomfort. Radiating into her neck and ears. On room air on arrival to the ER. Had an episode of coughing, coughed up a large amount of sputum which she said was bubbly but clear. Denies any fever, nausea, vomiting, diarrhea. Has had some chills but no sharron fever. Recently returned from vacation. Was on the [place] and drove back this past weekend with her family. They stopped twice on [address]. Has had sick contacts. Granddaughter has URI. In the ER, workup concerning for elevated white count of 14.8. Per chart review she has elevated white count chronically likely due to her asplenia. Troponin elevated from 0.0 4.09. Kidney function and electrolytes normal. Medicine consulted for admission for further management of her chest discomfort, elevated troponin. Cardiology consulted to assist with care. On arrival to the floor, patient on room air. Reports some swelling in her legs. Denies any syncope, confusion. Has been calm with her med Asians. Not on a sharron blood thinner but is on aspirin for his daily. No history of blood clots. Daughter with her at bedside. Hospital Course Hospital Course Hospital Course: 79-year-old female who presents with shortness of breath. Concern for elevation in troponin. Differential includes CHF exacerbation, respiratory infection, PE. Discussed case with ER physician, request admission due to elevating troponin and risk factors. I agreed to admit for further management. Cardiology consulted. Diuresed x 1 on admission. Differential includes pulmonary hypertension, viral URI, volume overload, type II NSTEMI from CHF exacerbation, PE. D-dimer within normal range in the ER. Responded well to diuresis. Decision made not to obtain CT PE due to patient's iodine allergy with hives and shortness of breath. Given her clinical response to diuresis and breathing treatments, will treat for bronchitis and volume overload. Stable to discharge home with close follow-up with cardiology and PCP. Echo obtained that is essentially stable from previous echoes. Problems addressed as follows. NSTEMI CHF exacerbation Pulmonary hypertension -Patient presented with shortness of breath chest pressure. Patient had recent travel to [place]. Found to have NSTEMI with slight elevation of her troponin. Differential diagnosis includes PE, CHF exacerbation, respiratory infection. Echo obtained with formal read showing elevated RVSP, no significant change in left ventricular function since last echo. EF still preserved. Increased diuresis. D-dimer was normal. Did not pursue CT PE as she improved with treatment for volume overload. Cardiology was consulted to assist with care,Recommend continuing Bumex at discharge. Has had sick exposures with her granddaughter. As she is asplenic, she was initiated on empiric antibiotics with ceftriaxone 2 g daily. Received a dose of dexamethasone on presentation. Baseline white cell count appears to be about 14. Bump to 23 on day of discharge, thought to be secondary to steroid effect given her actual clinical improvement, afebrile status, chest imaging not showing consolidation. Will continue short course of antibiotics for empiric therapy for bronchitis. Patient's lower extremity edema was somewhat better on day of discharge. Lower extremity duplex obtained negative for DVT. Stable to discharge home with continued medical management. Recommend following up with PCP in the next week and cardiology in the next couple of weeks. CAD/PAD: Continue aspirin 81 mg daily and Plavix 75 mg daily. Hypertension: continue carvedilol 25 mg twice daily Hyperlipidemia: Continue Lipitor 80 mg daily Hypothyroid: Continue levothyroxine 75 mcg daily Diabetes: A1c pending. Managed with Lantus and sliding scale insulin during admission. Resume home regimen of Soliqua and Janumet at discharge. Defer further adjustments to PCP. Total time spent on discharge 32 minutes in counseling, documentation, chart review, and direct care with patient. Exam Data for Last 24 hours Vital signs and Labs for Last 24 Hours: Temp Pulse Resp BP Pulse Ox O2 Del Method 98.0 F 76 21 139/72 94 L Room Air 01/25/24 08:00 01/25/24 08:00 01/25/24 08:00 01/25/24 08:00 01/25/24 08:00 01/25/24 08:00 Laboratory Results - last 24 hr 01/24/24 07:56: Chlamy pneumoniae PCR Not detected, Adenovirus (PCR) Not detected, B. pertussis DNA (PCR) Not detected, Coronavirus OC43 (PCR) Not detected, Coronavirus HKU1 (PCR) Not detected, Coronavirus 229E (PCR) Not detected, SARS-CoV-2 (PCR) Not detected, Coronavirus NL63 (PCR) Not detected, Human Metapneumovir PCR Not detected, Influenza A (H1) PCR Not detected, Influ A (H1N1/09) PCR Not detected, Influenza A (H3) PCR Not detected, Influenza Type A (PCR) Not detected, Influenza Type B (PCR) Not detected, M. pneumoniae (PCR) Not detected, Parainfluenza 1 (PCR) Not detected, Parainfluenza 2 (PCR) Not detected, Parainfluenza 3 (PCR) Not detected, Parainfluenza 4 (PCR) Not detected, RSV (PCR) Not detected, Entero/Rhino (PCR) Not detected 01/24/24 08:01: PT 10.9, INR 0.97, APTT 27.8, D-Dimer 0.46, Sodium 143, Potassium 3.9, Chloride 112 H, Carbon Dioxide 23, Anion Gap 11.9, BUN 14, Creatinine 0.80, Estimated GFR 69, Est GFR ( Amer) 84, Glucose 238 H, Calcium 9.6, Total Bilirubin 0.4, AST 49 H, ALT 42, Alkaline Phosphatase 82, Troponin I 0.04 H, C-Reactive Protein 7.7 H, Total Protein 7.5, Albumin 3.9, Globulin 3.6 H, Albumin/Globulin Ratio 1.1, Procalcitonin 0.089, TSH 2.47, Thyroxine (T4) 10.6 01/24/24 10:18: Troponin I 0.09 H, NT-Pro-B Natriuret Pep 265 01/24/24 10:52: Group A Strep Rapid Negative 01/24/24 12:40: Lactate 2.3 H 01/24/24 14:00: Troponin I 0.07 H 01/24/24 15:12: Lactate 2.6 H 01/24/24 19:55: POC Glucose 313 H* 01/25/24 05:44: Sodium 141, Potassium 3.8, Chloride 108 H, Carbon Dioxide 24, Anion Gap 12.8, BUN 22 H D, Creatinine 0.80, Estimated Creat Clear 52, Estimated GFR 69, Est GFR ( Amer) 84, Glucose 191 H, Calcium 9.6, Magnesium 1.4 L, Total Bilirubin 0.4, AST 44 H, ALT 42, Alkaline Phosphatase 73, Total Protein 7.7, Albumin 3.9, Globulin 3.8 H, Albumin/Globulin Ratio 1.0 L, Triglycerides 336 H, Cholesterol 174, LDL Cholesterol Direct 87.36 L, VLDL Cholesterol 67 H, HDL Cholesterol 32 L, Cholesterol/HDL Ratio 5.4 H 01/25/24 06:18: POC Glucose 185 H I & O for Last 24 hours: Intake & Output 01/22/24 01/23/24 01/24/24 01/25/24 23:59 23:59 23:59 23:59 Intake Total 200 / 440 240 / 240 Output Total 400 / 600 200 / 200 Balance -200 / -160 40 / 40 Weight 73.737 kg Narrative: Chest x-ray is normal Echocardiogram shows: Normal LV systolic function. Mild RV dilation with normal RV function. Biatrial dilation. Moderate AI, moderate TR. Mild MR. RVSP 45-40 mmHg. Constitutional Constitutional: no acute distress, average body habitus and cooperative *Routine HEENT Exam Head: Present normocephalic and atraumatic ENT: Present mucous membranes moist *Routine Neck Exam Neck: Present supple, full ROM and normal carotid upstroke; Absent JVD, carotid bruit or lymphadenopathy *Routine Respiratory Exam Respiratory: Present normal respiratory effort, able to speak in complete sentences and symmetric chest movement; Absent rhonchi, wheezes or crackles *Routine Cardiovascular Exam Cardiovascular: Present RRR, Normal S1 and Normal S2; Absent murmur *Routine Abdominal Exam Abdominal: Present soft and normoactive bowel sounds; Absent tenderness, distended or organomegaly *Routine Rectal Exam Patient deferred: visual exam *Routine Exam Patient deferred: external exam *Routine Extremities Exam Extremities: Present edema (1+ BLE edema); Absent cyanosis or clubbing Comments: Left foot with callus over middle of arch. Injury from previous fracture. Healing per her report. No erythema. *Routine Skin Exam Skin: Present intact and warm; Absent erythema *Routine Neurological Exam Neurological: Present alert, oriented X3, CN II-XII intact and moving all extremities; Absent sensory deficit, motor deficit or altered mental status Routine Psychiatric Exam Psychiatric: Present normal affect Results Data Completed and Pending Labs on day of discharge: Labs from last 24 hours 01/25/24 01/25/24 01/24/24 06:18 05:44 19:55 PT INR APTT D-Dimer Sodium 141 Potassium 3.8 Chloride 108 H Carbon Dioxide 24 Anion Gap 12.8 BUN 22 H D Creatinine 0.80 Estimated Creat Clear 52 Estimated GFR 69 Est GFR ( Amer) 84 Glucose 191 H POC Glucose 185 H 313 H* Lactate Calcium 9.6 Magnesium 1.4 L Total Bilirubin 0.4 AST 44 H ALT 42 Alkaline Phosphatase 73 Troponin I C-Reactive Protein NT-Pro-B Natriuret Pep Total Protein 7.7 Albumin 3.9 Globulin 3.8 H Albumin/Globulin Ratio 1.0 L Triglycerides 336 H Cholesterol 174 LDL Cholesterol Direct 87.36 L VLDL Cholesterol 67 H HDL Cholesterol 32 L Cholesterol/HDL Ratio 5.4 H Procalcitonin TSH Thyroxine (T4) Chlamy pneumoniae PCR Adenovirus (PCR) B. pertussis DNA (PCR) Coronavirus OC43 (PCR) Coronavirus HKU1 (PCR) Coronavirus 229E (PCR) SARS-CoV-2 (PCR) Coronavirus NL63 (PCR) Human Metapneumovir PCR Influenza A (H1) PCR Influ A (H1N1) PCR Influenza A (H3) PCR Influenza Type A (PCR) Influenza Type B (PCR) M. pneumoniae (PCR) Parainfluenza 1 (PCR) Parainfluenza 2 (PCR) Parainfluenza 3 (PCR) Parainfluenza 4 (PCR) RSV (PCR) Entero/Rhino (PCR) Group A Strep Rapid 01/24/24 01/24/24 01/24/24 15:12 14:00 12:40 PT INR APTT D-Dimer Sodium Potassium Chloride Carbon Dioxide Anion Gap BUN Creatinine Estimated Creat Clear Estimated GFR Est GFR ( Amer) Glucose POC Glucose Lactate 2.6 H 2.3 H Calcium Magnesium Total Bilirubin AST ALT Alkaline Phosphatase Troponin I 0.07 H C-Reactive Protein NT-Pro-B Natriuret Pep Total Protein Albumin Globulin Albumin/Globulin Ratio Triglycerides Cholesterol LDL Cholesterol Direct VLDL Cholesterol HDL Cholesterol Cholesterol/HDL Ratio Procalcitonin TSH Thyroxine (T4) Chlamy pneumoniae PCR Adenovirus (PCR) B. pertussis DNA (PCR) Coronavirus OC43 (PCR) Coronavirus HKU1 (PCR) Coronavirus 229E (PCR) SARS-CoV-2 (PCR) Coronavirus NL63 (PCR) Human Metapneumovir PCR Influenza A (H1) PCR Influ A (H1N1/09) PCR Influenza A (H3) PCR Influenza Type A (PCR) Influenza Type B (PCR) M. pneumoniae (PCR) Parainfluenza 1 (PCR) Parainfluenza 2 (PCR) Parainfluenza 3 (PCR) Parainfluenza 4 (PCR) RSV (PCR) Entero/Rhino (PCR) Group A Strep Rapid 01/24/24 01/24/24 01/24/24 10:52 10:18 08:01 PT 10.9 INR 0.97 APTT 27.8 D-Dimer 0.46 Sodium 143 Potassium 3.9 Chloride 112 H Carbon Dioxide 23 Anion Gap 11.9 BUN 14 Creatinine 0.80 Estimated Creat Clear Estimated GFR 69 Est GFR ( Amer) 84 Glucose 238 H POC Glucose Lactate Calcium 9.6 Magnesium Total Bilirubin 0.4 AST 49 H ALT 42 Alkaline Phosphatase 82 Troponin I 0.09 H 0.04 H C-Reactive Protein 7.7 H NT-Pro-B Natriuret Pep 265 Total Protein 7.5 Albumin 3.9 Globulin 3.6 H Albumin/Globulin Ratio 1.1 Triglycerides Cholesterol LDL Cholesterol Direct VLDL Cholesterol HDL Cholesterol Cholesterol/HDL Ratio Procalcitonin 0.089 TSH 2.47 Thyroxine (T4) 10.6 Chlamy pneumoniae PCR Adenovirus (PCR) B. pertussis DNA (PCR) Coronavirus OC43 (PCR) Coronavirus HKU1 (PCR) Coronavirus 229E (PCR) SARS-CoV-2 (PCR) Coronavirus NL63 (PCR) Human Metapneumovir PCR Influenza A (H1) PCR Influ A (H1N1/09) PCR Influenza A (H3) PCR Influenza Type A (PCR) Influenza Type B (PCR) M. pneumoniae (PCR) Parainfluenza 1 (PCR) Parainfluenza 2 (PCR) Parainfluenza 3 (PCR) Parainfluenza 4 (PCR) RSV (PCR) Entero/Rhino (PCR) Group A Strep Rapid Negative 01/24/24 07:56 PT INR APTT D-Dimer Sodium Potassium Chloride Carbon Dioxide Anion Gap BUN Creatinine Estimated Creat Clear Estimated GFR Est GFR ( Amer) Glucose POC Glucose Lactate Calcium Magnesium Total Bilirubin AST ALT Alkaline Phosphatase Troponin I C-Reactive Protein NT-Pro-B Natriuret Pep Total Protein Albumin Globulin Albumin/Globulin Ratio Triglycerides Cholesterol LDL Cholesterol Direct VLDL Cholesterol HDL Cholesterol Cholesterol/HDL Ratio Procalcitonin TSH Thyroxine (T4) Chlamy pneumoniae PCR Not detected Adenovirus (PCR) Not detected B. pertussis DNA (PCR) Not detected Coronavirus OC43 (PCR) Not detected Coronavirus HKU1 (PCR) Not detected Coronavirus 229E (PCR) Not detected SARS-CoV-2 (PCR) Not detected Coronavirus NL63 (PCR) Not detected Human Metapneumovir PCR Not detected Influenza A (H1) PCR Not detected Influ A (H1N1/09) PCR Not detected Influenza A (H3) PCR Not detected Influenza Type A (PCR) Not detected Influenza Type B (PCR) Not detected M. pneumoniae (PCR) Not detected Parainfluenza 1 (PCR) Not detected Parainfluenza 2 (PCR) Not detected Parainfluenza 3 (PCR) Not detected Parainfluenza 4 (PCR) Not detected RSV (PCR) Not detected Entero/Rhino (PCR) Not detected Group A Strep Rapid DS: Diagnosis Discharge Diagnosis (1) NSTEMI (non-ST elevated myocardial infarction): Status: Acute Code(s): I21.4 - Non-ST elevation (NSTEMI) myocardial infarction (2) HHD (hypertensive heart disease): Status: Chronic Code(s): I11.9 - Hypertensive heart disease without heart failure Qualifiers: Heart failure presence: without heart failure Qualified Code(s): I11.9 - Hypertensive heart disease without heart failure (3) HLD (hyperlipidemia): Status: Chronic Code(s): E78.5 - Hyperlipidemia, unspecified Qualifiers: Hyperlipidemia type: mixed hyperlipidemia Qualified Code(s): E78.2 - Mixed hyperlipidemia (4) CAD (coronary artery disease): Status: Chronic Code(s): I25.10 - Atherosclerotic heart disease of [place] coronary artery without angina pectoris Qualifiers: Associated angina: with other forms of angina Coronary Disease-Associated Artery/Lesion type: [place] artery [place] vs. transplanted heart: [place] heart Qualified Code(s): I25.118 - Atherosclerotic heart disease of [place] coronary artery with other forms of angina pectoris (5) Diabetes: Status: Chronic Code(s): E11.9 - Type 2 diabetes mellitus without complications Qualifiers: Diabetes mellitus complication status: without complication Diabetes mellitus half-way insulin use: without half-way use Diabetes mellitus type: type 2 Qualified Code(s): E11.9 - Type 2 diabetes mellitus without complications (6) PAD (peripheral artery disease): Status: Chronic Code(s): I73.9 - Peripheral vascular disease, unspecified (7) Pulmonary hypertension: Status: Chronic Code(s): I27.20 - Pulmonary hypertension, unspecified (8) Asplenia: Status: Chronic Code(s): Q89.01 - Asplenia (congenital) (9) Hypothyroid: Status: Chronic Code(s): E03.9 - Hypothyroidism, unspecified Qualifiers: Hypothyroidism type: acquired Qualified Code(s): E03.9 - Hypothyroidism, unspecified (10) Bronchitis: Status: Acute Code(s): J40 - Bronchitis, not specified as acute or chronic Meds Home Medications and Allergies Home Medications ?Medication ?Instructions ?Recorded ?Confirmed ?Type aspirin 81 mg tablet,delayed 81 mg PO DAILY 02/22/22 01/24/24 History release fenofibrate nanocrystallized 145 145 mg PO DAILY 02/22/22 01/24/24 History mg tablet pantoprazole 40 mg tablet,delayed 40 mg PO DAILY 02/22/22 01/24/24 History release atorvastatin 80 mg tablet 80 mg PO DAILY 01/24/24 01/24/24 History carvedilol 25 mg tablet 25 mg PO BID 01/24/24 01/24/24 History clopidogrel 75 mg tablet 75 mg PO DAILY 01/24/24 01/24/24 History insulin glargine 100 30 unit SQ DAILY 01/24/24 01/24/24 History unit-lixisenatide 33 mcg/mL subcutaneous pen (Soliqua 100/33) levothyroxine 75 mcg tablet 75 mcg PO DAILY 01/24/24 01/24/24 History niacin 500 mg tablet 500 mg PO BID 01/24/24 01/24/24 History sitagliptin phos 50 mg-metformin 1 tab PO QPMWITHMEAL 01/24/24 01/24/24 History ER 1,000 mg tablet,extend rel 24h mp (Janumet XR) azithromycin 250 mg tablet 250 mg PO DAILY 5 days #6 tabs 01/25/24 Rx bumetanide 1 mg tablet 1 mg PO DAILY #30 tabs 01/25/24 Rx New Prescriptions to Start Prescriptions: Brennen Lindsay bumetanide Brennen Denney Allergies Allergy/AdvReac Type Severity Reaction Status Date / Time Iodinated Contrast Media Allergy Unknown SHORTNESS Verified 08/25/22 10:06 [IODINATED CONTRAST MEDIA - OF BREATH ORAL AND] Sulfa (Sulfonamide Allergy Unknown I-HIVES Verified 08/25/22 10:06 Antibiotics) [SULFA (SULFONAMIDE ANTIBIOTICS)] sulfamethoxazole Allergy Unknown I-HIVES Verified 08/25/22 10:06 [From BACTRIM] trimethoprim [From BACTRIM] Allergy Unknown I-HIVES Verified 08/25/22 10:06 Discharge Plan Disposition Patient Disposition: Home, Self-Care Condition: Good Follow up Plan Follow up with: Shree Gallagher MD [Primary Care Provider] - 01/31/24 9:45 am (appointment in [place] office ) Suresh Garcia MD [Staff Physician] - 02/08/24 1:30 pm Prescriptions/Medication Reconciliation: New bumetanide 1 mg tablet 1 mg PO DAILY Qty: 30 0RF azithromycin 250 mg tablet 250 mg PO DAILY 5 Days Qty: 6 0RF Rx Instructions: 2 tabs on day one, 1 tab daily thereafter Continued fenofibrate nanocrystallized 145 mg tablet 145 mg PO DAILY aspirin 81 mg tablet,delayed release (DR/EC) 81 mg PO DAILY pantoprazole 40 mg tablet,delayed release (DR/EC) 40 mg PO DAILY atorvastatin 80 mg tablet 80 mg PO DAILY Patient Comments: TAKE ONE TABLET BY MOUTH DAILY FOR CHOLESTEROL carvedilol 25 mg tablet 25 mg PO BID Patient Comments: TAKE ONE TABLET BY MOUTH TWICE DAILY niacin 500 mg tablet 500 mg PO BID Patient Comments: TAKE ONE TABLET BY MOUTH TWICE DAILY Janumet XR 50-1,000 mg tablet, ER multiphase 24 hr 1 tab PO QPMWITHMEAL Patient Comments: TAKE ONE TABLET BY MOUTH EVERY DAY IN THE EVENING levothyroxine 75 mcg tablet 75 mcg PO DAILY Patient Comments: TAKE ONE TABLET BY MOUTH EVERY DAY clopidogrel 75 mg tablet 75 mg PO DAILY Soliqua 100/33 100 unit-33 mcg/mL insulin pen 30 unit SQ DAILY Discontinued furosemide 20 mg tablet 40 mg PO DAILY Patient Comments: TAKE TWO TABLETS BY MOUTH EVERY MORNING AND TAKE ONE TABLET EVERY EVENING furosemide 20 mg tablet 20 mg PO HS Problem Reconciliation Problems Reviewed?: Yes Patient Discharge Instructions ACTIVITY: Continue current activity DIET: continue same diet and low salt diet Patient Instructions: DI for Chest Pain Print Language: Palestinian Providers Primary Care Provider: Shree Gallagher Admit Provider: Brennen Denney Attending Provider: Brennen Denney
[2024-01-25 08:24] LABS: MANUAL DIFFERENTIAL MANUAL DIFFERENTIAL (MANUAL DIFF)
--- NOTE | 2024-01-25 08:46 | CA_ITS ---
FINAL REPORT CLINICAL HISTORY: [place], recent long distance travel COMPARISON: None FINDINGS: Multiple transverse and longitudinal scans were performed of the femoral popliteal deep venous system, with augmentation and compression maneuvers. Normal phasic flow was noted in the visualized deep venous system. No intraluminal increased echogenicity is noted to suggest thrombus. There is normal compression and augmentation of the venous structures. No abnormal venous collaterals are seen. IMPRESSION: No evidence of deep venous thrombosis of the bilateral lower extremities. Reviewed, Interpreted and Dictated by Reuben Webb MD Transcribed by Rocio Ruvalcaba Authenticated and [facility]
--- NOTE | 2024-01-25 09:21 | EXP.CARD.PN ---
Subjective Subjective Date: 01/25/24 Time: 08:30 Principal diagnosis: viral URI, pulmonary htn, elevated troponin Interval history: This is an 79-year-old female who presented to the emergency department with shortness of breath, runny nose sore throat and ear pain. The patient was admitted with a viral URI as well as an elevated troponin. She was given a dose of IV Bumex yesterday due to her history of pulmonary hypertension. She states that she is feeling much better today. Her shortness of breath has significantly improved. Her sore throat has also significantly improved. She denies any chest pain or pressure. She denies any lower extremity edema. She denies any fever, chills, nausea, vomiting, diarrhea, PND or orthopnea. Exam Data for Last 24 hours Vital signs and Labs for Last 24 Hours: Temp Pulse Resp BP Pulse Ox O2 Del Method 98.0 F 76 21 139/72 94 L Room Air 01/25/24 08:00 01/25/24 08:00 01/25/24 08:00 01/25/24 08:00 01/25/24 08:00 01/25/24 09:00 Laboratory Results - last 24 hr 01/24/24 07:56: Chlamy pneumoniae PCR Not detected, Adenovirus (PCR) Not detected, B. pertussis DNA (PCR) Not detected, Coronavirus OC43 (PCR) Not detected, Coronavirus HKU1 (PCR) Not detected, Coronavirus 229E (PCR) Not detected, SARS-CoV-2 (PCR) Not detected, Coronavirus NL63 (PCR) Not detected, Human Metapneumovir PCR Not detected, Influenza A (H1) PCR Not detected, Influ A (H1N1/09) PCR Not detected, Influenza A (H3) PCR Not detected, Influenza Type A (PCR) Not detected, Influenza Type B (PCR) Not detected, M. pneumoniae (PCR) Not detected, Parainfluenza 1 (PCR) Not detected, Parainfluenza 2 (PCR) Not detected, Parainfluenza 3 (PCR) Not detected, Parainfluenza 4 (PCR) Not detected, RSV (PCR) Not detected, Entero/Rhino (PCR) Not detected 01/24/24 08:01: Procalcitonin 0.089 01/24/24 10:18: Troponin I 0.09 H, NT-Pro-B Natriuret Pep 265 01/24/24 10:52: Group A Strep Rapid Negative 01/24/24 12:40: Lactate 2.3 H 01/24/24 14:00: Troponin I 0.07 H 01/24/24 15:12: Lactate 2.6 H 01/24/24 19:55: POC Glucose 313 H* 01/25/24 05:44: WBC 23.5 H* D, RBC 3.08 L, Hgb 11.7 L, Hct 31.3 L, MCV 101.6 H, MCH 38.1 H, MCHC 37.5 H, RDW 13.7, Plt Count 270, MPV 10.6 H, Neut % (Auto) 75.6, Lymph % (Auto) 19.9, [place] % (Auto) 4.1, Eos % (Auto) 0.1, Baso % (Auto) 0.3, Neut # (Auto) 17.7 H, Lymph # (Auto) 4.7 H, [place] # (Auto) 1.0, Eos # (Auto) 0.0, Baso # (Auto) 0.1, Sodium 141, Potassium 3.8, Chloride 108 H, Carbon Dioxide 24, Anion Gap 12.8, BUN 22 H D, Creatinine 0.80, Estimated Creat Clear 52, Estimated GFR 69, Est GFR ( Amer) 84, Glucose 191 H, Calcium 9.6, Magnesium 1.4 L, Total Bilirubin 0.4, AST 44 H, ALT 42, Alkaline Phosphatase 73, Total Protein 7.7, Albumin 3.9, Globulin 3.8 H, Albumin/Globulin Ratio 1.0 L, Triglycerides 336 H, Cholesterol 174, LDL Cholesterol Direct 87.36 L, VLDL Cholesterol 67 H, HDL Cholesterol 32 L, Cholesterol/HDL Ratio 5.4 H 01/25/24 06:18: POC Glucose 185 H I & O for Last 24 hours: Intake & Output 01/22/24 01/23/24 01/24/24 01/25/24 23:59 23:59 23:59 23:59 Intake Total 200 / 440 740 / 740 Output Total 400 / 600 850 / 850 Balance -200 / -160 -110 / -110 Weight 162 lb 9 oz 164 lb 7 oz Narrative: Chest x-ray is normal Echocardiogram shows: Normal LV systolic function. Mild RV dilation with normal RV function. Biatrial dilation. Moderate AI, moderate TR. Mild MR. RVSP 45-40 mmHg. Constitutional Constitutional: no acute distress and average body habitus *Routine HEENT Exam Head: Present normocephalic and atraumatic ENT: Present mucous membranes moist *Routine Neck Exam Neck: Present supple, full ROM and normal carotid upstroke; Absent JVD, carotid bruit or lymphadenopathy *Routine Respiratory Exam Respiratory: Present wheezes, normal respiratory effort, able to speak in complete sentences and symmetric chest movement *Routine Cardiovascular Exam Cardiovascular: Present RRR, Normal S1 and Normal S2; Absent murmur or gallop *Routine Abdominal Exam Abdominal: Present soft and normoactive bowel sounds; Absent tenderness, distended or organomegaly *Routine Extremities Exam Extremities: Present edema (trace BLE edema), full ROM, pulses intact and normal capillary refill; Absent cyanosis or clubbing *Routine Skin Exam Skin: Present intact and warm; Absent erythema *Routine Neurological Exam Neurological: Present alert, oriented X3 and CN II-XII intact; Absent sensory deficit or motor deficit Routine Psychiatric Exam Psychiatric: Present normal affect Progress Note: A&P Assessment and plan (1) NSTEMI (non-ST elevated myocardial infarction): Status: Acute (2) CAD (coronary artery disease): Status: Chronic (3) HHD (hypertensive heart disease): Status: Chronic (4) HLD (hyperlipidemia): Status: Chronic (5) Diabetes: Status: Chronic (6) PAD (peripheral artery disease): Status: Chronic (7) Pulmonary hypertension: Status: Chronic (8) Asplenia: Status: Chronic (9) Hypothyroid: Status: Chronic (10) Viral URI with cough: Status: Acute Assessment and Plan Assessment and Plan for All Diagnoses:: Plan: 1. The patient was admitted to the hospital secondary to an elevated troponin. This is most likely a type II non-STEMI due to her viral syndrome and known underlying pulmonary hypertension. She denies any chest pain or pressure. Her troponin did decrease overnight, down to 0.07. No plans for invasive left cardiac catheterization at this time. 2. However, she would benefit from an ischemic evaluation on an outpatient basis once she has recovered from her viral illness. 3. Echocardiogram shows a normal ejection fraction. She does have an RVSP 45 mmHg which is unchanged from May 2023. Moderate AI is also unchanged from May 2023. 4. The patient has been treated with IV Bumex and her symptoms have improved. Recommend switching her over to Bumex 1 mg p.o. daily once she is ready for discharge home. 5. Coronary artery disease is present. Continue aspirin and Plavix for dual antiplatelet therapy. Recommend outpatient ischemic evaluation once she has recovered from her viral illness. 6. Her blood pressure is well-controlled. 7. Her LDL goal is less than 55. Her LDL is 87. She is on a statin. 8. Her white blood cell count did elevate to 23.5 today. However she did have a dose of dexamethasone yesterday. She is empirically being treated with antibiotics per the hospitalist. Will defer. 9. The patient is stable for discharge home today from a cardiac standpoint. She will need to follow-up in cardiology clinic next week. 10. She can be discharged home on the following cardiac medications: Aspirin 81 mg daily, Lipitor 80 mg p.o. nightly, Bumex 1 mg p.o. daily, carvedilol 25 mg p.o. twice daily, Plavix 75 mg daily, fenofibrate 145 mg p.o. daily, Protonix 40 mg daily. Thank you for the opportunity to help participate in the care of this patient. All recommendations and orders are per Dr. Garcia.
[2024-01-25] MEDS: BUMETANIDE 1MG/4ML VIAL 1 MG IV (09:48)
[2024-01-25] MEDS: POTASSIUM CHLORIDE 20MEQ TAB 40 MEQ PO (09:48)
[2024-01-25] MEDS: MAGNESIUM SULFATE IN WATER 2 GM/50 ML PIGGYBACK IV (09:48)
[2024-01-25 10:17] LABS: Lymphocytes % 16 % (10-50); Macrocytosis 1+; Monocytes % 2 % (2-9); Neutrophils % 82 % (42-76); Platelet Estimate Normal; Total Cells Counted 100
[2024-01-25] MEDS: humaLOG 100 UNITS/ML 10ML VIAL (SSI) SQ (10:49)
[2024-01-25 10:57] LABS: POC Glucose,Bedside 178 (70-110)
[2024-01-25 12:30] LABS: Hemoglobin A1C 6.8 % (4.0-6.0)
--- NOTE | 2024-01-26 15:28 | CARE MANAGER ---
Contacted patient related to hospital discharge. Patient reports that she is a little better, but still some short of breath and coughing. She has new medications and denies questions or concerns. She is aware of follow up appointments. SURINDER Shoemaker
== END 2024-01-25 12:53 | disposition home or self-care (01) ==
LOC: ER 11:35 → 2ND 11:45
PROVIDERS: Nurse Practitioner Family; Admitting Provider Internal Medicine Adolescent Medicine; Emergency Provider Emergency Medicine; PCP Internal Medicine Adolescent Medicine; Visit Provider Internal Medicine Adolescent Medicine
DX: I11.0 Hypertensive heart disease with heart failure (principal); I21.4 Non-ST elevation (NSTEMI) myocardial infarction; E78.2 Mixed hyperlipidemia; I25.118 Atherosclerotic heart disease of native coronary artery with other forms of angina pectoris; I73.9 Peripheral vascular disease, unspecified; I27.20 Pulmonary hypertension, unspecified; E03.9 Hypothyroidism, unspecified; J06.9 Acute upper respiratory infection, unspecified; R79.89 Other specified abnormal findings of blood chemistry; I65.23 Occlusion and stenosis of bilateral carotid arteries; I35.1 Nonrheumatic aortic (valve) insufficiency; J40 Bronchitis, not specified as acute or chronic; Z95.1 Presence of aortocoronary bypass graft; E11.51 Type 2 diabetes mellitus with diabetic peripheral angiopathy without gangrene
CPT/HCPCS: 36415; 71046; 80050; 80053; 80061; 82803; 82962; 83036; 83605; 83735; 83880; 84145; 84436; 84443; 84484; 85007; 85025; 85027; 85378; 85610; 85730; 86140; 87040; 87430; 87581; 87632; 87635; 87636; 87798; 93005; 93306; 93970; 94640; 99285; G0378; J0696; J1650; J1885; J3475; J7120; J7620